=== PATIENT | female | born 1960 | race Caucasian/White ===

== ENCOUNTER 2016-12-28 16:52 | Observation (INO) ==
[2016-12-28] MEDS ORDERED: Aspirin 81 MG TAB.CHEW PO ONE (17:05)
[2016-12-28 17:19] LABS: Basophils # 0.1 K/mcL (0.0-0.2); Basophils % 0.5 %; Eosinophils # 0.1 K/mcL (0.0-0.6); Eosinophils % 0.7 %; Hemoglobin 13.6 g/dL (11.5-15.4); Immature Granulocytes % 0.2 % (0-4); Immature Platelets 3.1 % (1.1-6.1); Lymphocytes # 2.6 K/mcL (0.6-4.6); Lymphocytes % 28.7 %; Mean Corpuscular HGB Conc 33.2 g/dL (31.6-35.5); Mean Corpuscular Hemoglobin 27.8 pg (28.0-33.3); Mean Corpuscular Volume 83.8 fL (83.0-100.0); Mean Platelet Volume 10.1 fL (9.4-12.4); Monocytes # 0.7 K/mcL (0.0-1.3); Monocytes % 7.2 %; Neutrophils # 5.7 K/mcL (1.6-8.9); Platelet Count 267 K/mcL (140-400); Red Blood Count 4.89 M/mcL (3.82-4.97); Red Cell Distribution Width 13.2 % (11.5-14.5); Segmented Neutrophils % 62.7 %
[2016-12-28 17:24] LABS: INR 1.1; Prothrombin Time 12.2 Seconds (9.4-12.1)
[2016-12-28 17:27] LABS: Activated Partial Thrombo Time 35.2 Seconds (26.0-36.0)
[2016-12-28 17:32] LABS: BUN/Creatinine Ratio 23 (6-26); Blood Urea Nitrogen 18 mg/dL (7-20); Calcium 9.9 mg/dL (8.6-10.8); Carbon Dioxide 30 mEq/L (19-29); Chloride 102 mEq/L (98-109); Glucose 108 mg/dL (70-99); Osmolality,Calculated 290 (280-300); Potassium 3.8 mEq/L (3.5-4.5); Sodium 139 mEq/L (136-145); eGFR For African Americans > 60 (> 60); eGFR For Non-African Americans > 60 (> 60)
--- NOTE | 2016-12-28 18:07 | Emergency Department Note ---
START Narrative - START START: I examined this patient and my medical decision-making was reviewed with the POLE TESTER/PA/Advanced Practice Nurse/Resident Physician. I agree with the documented findings, disposition and treatment plan as described except to the extent set forth below. ED attending note: Patient seen with emergency medicine resident Dr RAZA. We independently evaluated the patient. We independently had [id number] contact with the patient. Please see a copy of his note for details of the history and physical, evaluation, management and disposition of this emergency Department patient. Briefly 56-year-old female presents ambulatory with family members for chest pain. Her HEART score, is between 4 and 5. EKG shows no acute ischemic changes troponin negative patient is pain-free. Patient will be admitted for chest pain consider acute coronary syndrome. Provided 30 minutes of critical care services for this patient. Aspirin was unable to be given because the patient states she has a "gastric sleeve" and her surgeon said that she cannot of aspirin. Patient to be admitted in stable condition
--- NOTE | 2016-12-28 18:09 | Emergency Department Note ---
Disposition Clinical Impression: Chest pain Qualifiers: Chest pain type: unspecified Qualified Code(s): R07.9 - Chest pain, unspecified Disposition: Admitted As Inpatient Condition: Fair Referrals: Jaime Gipson DO [Primary Care Provider] - Forms: ED Satisfaction Letter Time of Disposition: 18:42 Chest Pain HPI - General Chief Complaint: ED Chest Pain Stated Complaint: C/P Time Seen by Provider: 12/28/16 17:06 Source: patient Limitations: no limitations Vital Signs Reviewed: Yes Nursing Notes Reviewed: Yes - History of Present Illness HPI Narrative: 56-year-old female with history of hypertension hyperlipidemia and diabetes, also status post gastric bypass a few years ago, and previous PR 5 years ago. Presents with chest pain substernal at rest. It is making her diaphoretic was 8 out of 10 aching and felt like pressure that radiated into her neck made her diaphoretic and nauseated. Patient arrives, she is unable to take aspirin secondary to intolerance. Patient reports that she still is 6 out of 10 pain. Patient denies fever chills or recent infection, denies diarrhea constipation or abdominal pain. Pt complaint: chest pain Onset (ago): hour(s) Duration: intermittent Pain Location: substernal Severity: moderate Severity scale (1-10): 6 Quality: aching Pain Radiation: neck Improves with: nothing Worsens with: exertion Associated symptoms: Reports: nausea, diaphoresis Treatments prior to arrival chest pain: none - Related Data Allergies Allergy/AdvReac Type Severity Reaction Status Date / Time No Known Allergies Allergy Verified 12/28/16 17:29 All systems ED: reviewed and negative except as stated. Review of Systems: As Per HPI Constitutional: Denies: fever, chills, weakness ENT ED: Denies: ear pain, throat pain Cardiovascular: Reports: as per HPI, chest pain, dyspnea on exertion. Denies: palpitations, edema Respiratory: Denies: cough, dyspnea Gastrointestinal: Reports: as per HPI, nausea. Denies: abdominal pain Genitourinary: Denies: urgency, dysuria Musculoskeletal: Denies: back pain, neck pain Integumentary: Denies: rash Neurological: Denies: headache Chest Pain PMH - Past Medical History Medical history: Reports: diabetes, hypertension, myocardial infarction Psychiatric history: Reports: no psych history - Social History Smoking Status: Never smoker Alcohol use: Reports: none Drug use: Reports: none Physical Exam Constitutional: appears moderately uncomfortable. Older than stated age, hypertension Eyes: PERRLA, sclera anicteric ENT & Mouth: NCAT, normal external ears bilaterally, MMM Neck: normal inspection, neck is supple Resp: CTA bilaterally, no resp distress CV: RRR, no m/g/r GI: midline surgical incision normal inspection, soft, no guarding or rigidity Back: normal inspection, no tenderness to palpation Neuro: A&O3, CNII-XII grossly intact, COY MSK: no gross deformities, normal ROM UE and LE Skin: on limited exam, skin intact with no rashes or lesions - General Limitations: no limitations General appearance: alert, in no apparent distress Course Course Narrative: 56-year-old female with a heart score of 5, Chest pain workup give nitroglycerin patient says she is intolerant to aspirin so this time we will defer this admission. - Reevaluation(s) Reevaluation #1: Patient with nonelevated troponin, EKG with no ischemic changes, chest pain improved after nitroglycerin admitted to medicine service in stable condition. Laury THORNE accepts. Vital Signs Temperature 98.2 F 12/28/16 16:59 Pulse Rate 72 12/28/16 16:59 Respiratory Rate 17 12/28/16 16:59 Blood Pressure 167/109 12/28/16 16:59 O2 Sat by Pulse Oximetry 98 12/28/16 16:59 Temperature 98.2 F 12/28/16 16:59 Pulse Rate 77 12/28/16 17:44 Respiratory Rate 18 12/28/16 17:44 Blood Pressure 146/70 12/28/16 17:44 O2 Sat by Pulse Oximetry 96 12/28/16 17:44 Oxygen Delivery Oxygen Delivery Room Air Chest Pain - Differential Diagnosis Likely: stable angina, unstable angina pectoris, atypical chest pain - Medical Records Medical records reviewed: Yes I reviewed the patient's medical records. - Lab Data Lab results reviewed: Yes I reviewed the patient's lab results. Result diagrams: 12/28/16 17:12 12/28/16 17:12 Lab Results 12/28/16 12/28/16 12/28/16 Range/Units 17:12 17:12 17:12 WBC 9.2 (4.3-11.1) K/mcL RBC 4.89 (3.82-4.97) M/mcL Hgb 13.6 (11.5-15.4) g/dL Hct 41.0 (35.3-44.9) % MCV 83.8 (83.0-100.0) fL MCH 27.8 L (28.0-33.3) pg MCHC 33.2 (31.6-35.5) g/dL RDW 13.2 (11.5-14.5) % Plt Count 267 (140-400) K/mcL MPV 10.1 (9.4-12.4) fL Immature Gran % 0.2 (0-4) % Seg Neutrophils % 62.7 % Lymphocytes % 28.7 % Monocytes % 7.2 % Eosinophils % 0.7 % Basophils % 0.5 % Neutrophils # 5.7 (1.6-8.9) K/mcL Lymphocytes # 2.6 (0.6-4.6) K/mcL Monocytes # 0.7 (0.0-1.3) K/mcL Eosinophils # 0.1 (0.0-0.6) K/mcL Basophils # 0.1 (0.0-0.2) K/mcL Immature Plt Fraction 3.1 (1.1-6.1) % PT 12.2 H (9.4-12.1) Seconds INR 1.1 APTT 35.2 (26.0-36.0) Seconds Sodium 139 (136-145) mEq/L Potassium 3.8 (3.5-4.5) mEq/L Chloride 102 (98-109) mEq/L Carbon Dioxide 30 H (19-29) mEq/L BUN 18 (7-20) mg/dL Creatinine 0.79 (0.57-1.11) mg/dL Est GFR ( Amer) > 60 (> 60) Est GFR (Non-Af Amer) > 60 (> 60) BUN/Creatinine Ratio 23 (6-26) Glucose 108 H (70-99) mg/dL Calculated Osmolality 290 (280-300) Calcium 9.9 (8.6-10.8) mg/dL Troponin I (0-0.03) ng/mL 12/28/16 Range/Units 17:12 WBC (4.3-11.1) K/mcL RBC (3.82-4.97) M/mcL Hgb (11.5-15.4) g/dL Hct (35.3-44.9) % MCV (83.0-100.0) fL MCH (28.0-33.3) pg MCHC (31.6-35.5) g/dL RDW (11.5-14.5) % Plt Count (140-400) K/mcL MPV (9.4-12.4) fL Immature Gran % (0-4) % Seg Neutrophils % % Lymphocytes % % Monocytes % % Eosinophils % % Basophils % % Neutrophils # (1.6-8.9) K/mcL Lymphocytes # (0.6-4.6) K/mcL Monocytes # (0.0-1.3) K/mcL Eosinophils # (0.0-0.6) K/mcL Basophils # (0.0-0.2) K/mcL Immature Plt Fraction (1.1-6.1) % PT (9.4-12.1) Seconds INR APTT (26.0-36.0) Seconds Sodium (136-145) mEq/L Potassium (3.5-4.5) mEq/L Chloride (98-109) mEq/L Carbon Dioxide (19-29) mEq/L BUN (7-20) mg/dL Creatinine (0.57-1.11) mg/dL Est GFR ( Amer) (> 60) Est GFR (Non-Af Amer) (> 60) BUN/Creatinine Ratio (6-26) Glucose (70-99) mg/dL Calculated Osmolality (280-300) Calcium (8.6-10.8) mg/dL Troponin I 0.00 (0-0.03) ng/mL - Radiology Data Radiology results reviewed: Yes I reviewed the patient's radiology results. Lab Results 12/28/16 12/28/16 12/28/16 Range/Units 17:12 17:12 17:12 WBC 9.2 (4.3-11.1) K/mcL RBC 4.89 (3.82-4.97) M/mcL Hgb 13.6 (11.5-15.4) g/dL Hct 41.0 (35.3-44.9) % MCV 83.8 (83.0-100.0) fL MCH 27.8 L (28.0-33.3) pg MCHC 33.2 (31.6-35.5) g/dL RDW 13.2 (11.5-14.5) % Plt Count 267 (140-400) K/mcL MPV 10.1 (9.4-12.4) fL Immature Gran % 0.2 (0-4) % Seg Neutrophils % 62.7 % Lymphocytes % 28.7 % Monocytes % 7.2 % Eosinophils % 0.7 % Basophils % 0.5 % Neutrophils # 5.7 (1.6-8.9) K/mcL Lymphocytes # 2.6 (0.6-4.6) K/mcL Monocytes # 0.7 (0.0-1.3) K/mcL Eosinophils # 0.1 (0.0-0.6) K/mcL Basophils # 0.1 (0.0-0.2) K/mcL Immature Plt Fraction 3.1 (1.1-6.1) % PT 12.2 H (9.4-12.1) Seconds INR 1.1 APTT 35.2 (26.0-36.0) Seconds Sodium 139 (136-145) mEq/L Potassium 3.8 (3.5-4.5) mEq/L Chloride 102 (98-109) mEq/L Carbon Dioxide 30 H (19-29) mEq/L BUN 18 (7-20) mg/dL Creatinine 0.79 (0.57-1.11) mg/dL Est GFR ( Amer) > 60 (> 60) Est GFR (Non-Af Amer) > 60 (> 60) BUN/Creatinine Ratio 23 (6-26) Glucose 108 H (70-99) mg/dL Calculated Osmolality 290 (280-300) Calcium 9.9 (8.6-10.8) mg/dL Troponin I (0-0.03) ng/mL 12/28/16 Range/Units 17:12 WBC (4.3-11.1) K/mcL RBC (3.82-4.97) M/mcL Hgb (11.5-15.4) g/dL Hct (35.3-44.9) % MCV (83.0-100.0) fL MCH (28.0-33.3) pg MCHC (31.6-35.5) g/dL RDW (11.5-14.5) % Plt Count (140-400) K/mcL MPV (9.4-12.4) fL Immature Gran % (0-4) % Seg Neutrophils % % Lymphocytes % % Monocytes % % Eosinophils % % Basophils % % Neutrophils # (1.6-8.9) K/mcL Lymphocytes # (0.6-4.6) K/mcL Monocytes # (0.0-1.3) K/mcL Eosinophils # (0.0-0.6) K/mcL Basophils # (0.0-0.2) K/mcL Immature Plt Fraction (1.1-6.1) % PT (9.4-12.1) Seconds INR APTT (26.0-36.0) Seconds Sodium (136-145) mEq/L Potassium (3.5-4.5) mEq/L Chloride (98-109) mEq/L Carbon Dioxide (19-29) mEq/L BUN (7-20) mg/dL Creatinine (0.57-1.11) mg/dL Est GFR ( Amer) (> 60) Est GFR (Non-Af Amer) (> 60) BUN/Creatinine Ratio (6-26) Glucose (70-99) mg/dL Calculated Osmolality (280-300) Calcium (8.6-10.8) mg/dL Troponin I 0.00 (0-0.03) ng/mL Chest X-Ray 12/28/16 17:05 IMPRESSION: No acute process. D/ / Marissa Draper MD / Marissa Draper MD Interpreting Provider: Marissa Draper MD - EKG Data EKG attestation: Yes I reviewed and interpreted this EKG. EKG shows normal: sinus rhythm Rate: normal Rhythm: NSR (Ventricular rate 73 WI 144 QRS [address] segment elevations or depressions) ST segment depression in: v3 T wave inversions noted in: II, III Interpretation: nonspecific ST-T wave changes - Core Measures AMI Core Measures Followed: No Measure Exclusions: contraindicated (Patient intolerance secondary to GI surgery.) Heart Score - Score History: Moderately Suspicious EKG: Non Specific repolarisation Disturbance Age: 45-65 Risk Factors: Equal/Greater than 3 risk factor or history of atherosclerotic disease Troponin: Less than normal limit HEART Score Total: 5
[2016-12-28] MEDS ORDERED: Nitroglycerin 0.4 MG TAB.SUBL SL ONE (18:31)
[2016-12-28] MEDS ORDERED: Ondansetron 4 MG/2 ML VIAL IVP PRN (19:55)
[2016-12-28] MEDS ORDERED: *HR* Morphine 2 MG/ML SYRINGE IVP PRN (19:55)
[2016-12-28] MEDS ORDERED: Acetaminophen 325 MG TABLET PO PRN (19:55)
[2016-12-28] MEDS ORDERED: Naloxone 0.4 MG/ML INJ IVP PRN (19:55)
[2016-12-28] MEDS ORDERED: Nitroglycerin 0.4 MG TAB.SUBL SL PRN (20:00)
--- NOTE | 2016-12-28 20:10 | Internal Med History&Physical ---
Date of Encounter: 12/28/16 Time of Encounter: 20:15 Assessment and Plan (1) Chest pain Current visit: Yes Status: Acute Atypical chest pain - rule out ACS Continue Aspirin and Statin EKG - normal sinus rhythm with no acute ST-T changes Chest x-ray - no acute process Troponin - normal, cycle troponins BN peptide - 20 Echocardiogram and stress test pending Cardiac telemetry, labs in a.m. Qualifiers: Chest pain type: unspecified Qualified Code(s): R07.9 - Chest pain, unspecified (2) Type 2 diabetes mellitus Current visit: Yes Status: Chronic Diabetes mellitus type 2, [id number], normoglycemia - not on any home meds since gastric bypass surgery Objective glucose checks Qualifiers: Diabetes mellitus complication status: without complication Diabetes mellitus fci insulin use: without fci use Qualified Code(s): E11.9 - Type 2 diabetes mellitus without complications (3) Essential hypertension Current visit: Yes Status: Chronic Essential hypertension, controlled, monitor, continue home meds (4) S/P gastric bypass Current visit: Yes Status: Chronic Status post recent gastric bypass surgery and hiatal hernia repair (5) DVT prophylaxis Current visit: Yes Status: Acute Continue heparin subcutaneous Internal Medicine - H&P: HPI Chief complaint: Chest pain Admitted From: Emergency Dept Plans for Post Hospital Care: Home History of present illness: Ms. Lynch is a 56 year old female past medical history of diabetes, hypertension and status post recent gastric bypass surgery. She presents to ED with complaints of chest pain. On examination patient is awake and alert. Not in any distress. Able to provide all history. Daughter is at bedside. Patient states she developed abdominal pain and chest pain this afternoon. She mentions she ate a turkey sandwich for lunch and thinks she may have eaten the sandwich too quickly quickly and then suddenly developed the left-sided chest pain. Pain was almost constant and rates it 8 out of 10. Describes it as a chest pressure, radiating to left shoulder and left side of neck. She also had mild associated shortness of breath which is now resolved. She also complained of mild epigastric pain which is resolved. Denies palpitations or headache or dizziness. Denies abdominal pain or diarrhea or fever. Patient had a gastric bypass surgery done in September 2016. She has lost about 70 pounds since then. She no longer takes any medication for diabetes. She also had a hernia repair at the same time. Patient has no other associated symptoms at present. Initial evaluation in the ED is negative. EKG shows normal sinus rhythm and chest x-ray does not show any acute process. Troponin is normal. Patient is being admitted for chest pain, rule out ACS. Aspirin and statin will be continued. Echocardiogram and stress test are pending. Patient has been explained about her condition and plan of care. She understood and agreed. No unanswered questions. CODE STATUS full code. Past Med Surg Social Fam HX - Past Medical History Medical history: diabetes, hypertension, myocardial infarction Psychiatric history: no psych history - Past Surgical History Surgical History: cholecystectomy, other (Recent gastric bypass surgery and hiatal hernia repair) - Social History Smoking Status: Never smoker Smokeless Tobacco Status: No Alcohol use: none Drug use: none - Family History Mother Hx Family Cardiac Disorders: Yes (quad bypass, htn) Hx Family Neuromuscular Disorders: Yes (cva) Father Hx Family Cardiac Disorders: Yes Internal Medicine - H&P: Meds Calcium Carbonate [Calcium] 500 mg PO BID 12/28/16 [History] Cyanocobalamin (Vitamin B-12) [Vitamin B12] 1,000 mcg PO DAILY 12/28/16 [History ] Cyclobenzaprine [Flexeril] 10 mg PO HS PRN 12/28/16 [History] Lisinopril-HCTZ 10-12.5 [Prinzide 10-12.5] 0.5 each PO DAILY 12/28/16 [History] Magnesium Gluconate 500 gm MC HS 12/28/16 [History] Multivitamin [Flintstones] 2 each PO DAILY 12/28/16 [History] Ondansetron ODT [Zofran ODT] 4 mg SL Q4HR PRN 12/28/16 [History] Pantoprazole Sodium [Protonix] 40 mg PO DAILY 12/28/16 [History] Allergies NSAIDS (Non-Steroidal Anti-Inflamma Allergy (Verified 12/28/16 19:54) Abdominal Pain pt cannot take due to gastric sleeve promethazine [From Phenergan] Adverse Reaction (Intermediate, Verified 12/28/16 19:54) Confusion All Systems PM: A 10-system review of systems was performed and is negative for pertinent findings except as documented above in the HPI. - Constitutional Constitutional: no fatigue, no fever(s), no weakness - EENT Eyes: no blurry vision - Cardiovascular Cardiovascular ROS IM: chest pain, no dyspnea, no dyspnea on exertion, no edema , no lightheadedness, no orthopnea, no palpitations, no syncope - Respiratory Respiratory: no cough, no dyspnea, no hemoptysis, no dyspnea on exertion, no wheezing, no chest congestion - Gastrointestinal Gastrointestinal: abdominal pain, no belching, no bloating, no cramping, no diarrhea, no loose stools, no melena, no nausea, no vomiting - Genitourinary Genitourinary: no dysuria - Musculoskeletal Musculoskeletal ROS IM: no arthralgias - Neurological Neurological ROS: no abnormal gait, no abnormal speech, no dizziness, no focal weakness, no loss of vision, no numbness, no tingling - Constitutional Vitals: Temp Pulse Resp BP Pulse Ox 98.2 F 77 18 135/70 96 12/28/16 16:59 12/28/16 17:44 12/28/16 19:13 12/28/16 19:13 12/28/16 17:44 General appearance: Present: A&O X 3, pleasant, no acute distress, answers questions appropriately - Head Head exam: Present: atraumatic - Eye Eye exam: Present: EOMI - ENT ENT exam: Present: mucous membranes moist - Neck Neck exam general surgery: Present: supple - Respiratory Respiratory exam: Present: CTAB. Absent: chest wall tenderness, rales, rhonchi , wheezes, tachypnea - Cardiovascular Cardiovascular exam: Present: RRR, +S1, +S2 - GI/Abdominal GI/Abdominal exam: Present: soft, no peritoneal signs. Absent: distended, firm , guarding, rigid, tenderness - Extremities Exam Extremities exam: Present: radial pulses palpable and symetrical. Absent: cyanotic, pedal edema, tenderness - Neurological Exam Neurological exam: Present: alert, oriented X3, no focal deficits. Absent: facial droop, speech deficit Internal Med - H&P Results - Labs CBC & Chem 7: 12/28/16 17:12 12/28/16 17:12
[2016-12-28 20:26] LABS: Magnesium 2.2 mg/dL (1.6-2.6)
[2016-12-28] MEDS ORDERED: MAGNESIUM GLUCONATE MC SCH (21:00)
[2016-12-28] MEDS: Pantoprazole 40 MG VIAL IVP SCH (21:57)
[2016-12-29 05:58] LABS: Hematocrit 37.8 % (35.3-44.9); Hemoglobin 12.4 g/dL (11.5-15.4); Immature Granulocytes % 0.4 % (0-4); Lymphocytes % 25.2 %; Mean Corpuscular HGB Conc 32.8 g/dL (31.6-35.5); Mean Corpuscular Hemoglobin 27.6 pg (28.0-33.3); Mean Corpuscular Volume 84.2 fL (83.0-100.0); Mean Platelet Volume 10.4 fL (9.4-12.4); Monocytes % 8.2 %; Platelet Count 226 K/mcL (140-400); Red Blood Count 4.49 M/mcL (3.82-4.97); Red Cell Distribution Width 13.3 % (11.5-14.5); Segmented Neutrophils % 64.4 %
[2016-12-29 05:59] LABS: Basophils # 0.1 K/mcL (0.0-0.2); Basophils % 0.7 %; Eosinophils # 0.1 K/mcL (0.0-0.6); Eosinophils % 1.1 %; Lymphocytes # 1.9 K/mcL (0.6-4.6); Monocytes # 0.6 K/mcL (0.0-1.3); Neutrophils # 4.9 K/mcL (1.6-8.9)
[2016-12-29] MEDS ORDERED: Regadenoson 0.4 MG/5 ML SYRINGE IVP ONE (05:59)
[2016-12-29] MEDS ORDERED: *HR* Heparin 5,000 UNIT/ML VIAL SQ SCH (06:00)
[2016-12-29 06:10] LABS: Hemoglobin A1C 5.4 %
[2016-12-29 06:19] LABS: BUN/Creatinine Ratio 20 (6-26); Blood Urea Nitrogen 14 mg/dL (7-20); Calcium 9.2 mg/dL (8.6-10.8); Carbon Dioxide 31 mEq/L (19-29); Chloride 104 mEq/L (98-109); Chol/HDL Ratio 5.4 (0-4.9); Cholesterol 196 mg/dL (< 200); Glucose 91 mg/dL (70-99); HDL Cholesterol 36 mg/dL (40-59); LDL Cholesterol,Calculated 138 mg/dL (0-99); Osmolality,Calculated 290 (280-300); Potassium 3.9 mEq/L (3.5-4.5); Sodium 140 mEq/L (136-145); Triglycerides 109 mg/dL (< 150); eGFR For African Americans > 60 (> 60); eGFR For Non-African Americans > 60 (> 60)
[2016-12-29 06:32] LABS: Thyroid Stimulating Hormone 1.253 mcIU/mL (0.350-4.840)
[2016-12-29] MEDS ORDERED: Aspirin 81 MG TAB.CHEW PO SCH (09:00)
[2016-12-29] MEDS ORDERED: Cyanocobalamin (B-12) 1,000 MCG TABLET PO SCH (09:00)
[2016-12-29] MEDS ORDERED: Multivit/Ca/Min/Fe/FA 1 TAB TABLET PO SCH (09:00)
--- NOTE | 2016-12-29 09:43 | Nuclear Medicine Stress Report ---
Regadenoson Nuclear Stress Name: Xenia Lynch Date of Study: 12/29/2016 Date: 1960 Ht: 68.0 in Medical Record#: [id number] Age: 56 Wt: 212.0 lb Gender: Female Order #: [id number] Location: [facility] Room: [facility] Supervising Provider: Omer Bundy CNP Reading Physician: Ameya Keller DO, FIDELINA, CURTIS DRIVER Ordering Physician: Laura Alejandro CNP Primary Care Physician: None Stress Technologist: Renetta Christiansen, FLANGE MACHINE OPERATOR, CPFT Data Entry Manager: Stephany Lobo Indications: Chest Pain Impression: Pharmacologic stress ECG is non-diagnostic for ischemia due to baseline ST and T changes. Gated EF = 69%. Small sized, mild intensity, fixed apical anterior/septal and basal inferolateral defects. Wall motion appears normal. These findings are suggestive of artifact. Perfusion imaging was negative for ischemia or infarct. History: Hypertension Stress Test Summary: Stress Test Type: Pharmacologic Regadenoson 0.4mg/5ml given IV Baseline Information: Initial Heart Rate: 70 Blood Pressure: 124/78 Stress Information: Test Terminated Due to (primary): As per protocol Maximum Blood Pressure: 124/78 Maximum Heart Rate: 96 Percent Maximum Heart Rate Achieved: 58 Double Product: [id number] METS Reached: 1 Nuclear Summary: SPECT myocardial perfusion imaging using Tc99m Sestamibi given intravenously was performed at rest and following cardiac stress testing. The resting images were obtained following initial dose of 11.3 mCi. Following stress an additional dose of 32.8 mCi was given at peak exercise or 30 seconds post regadenoson infusion. Medication Given: Time Medication Dose Units Route Findings: Stress Note * Resting ECG demonstrated normal sinus rhythm with nonspecific ST-T changes. * No baseline arrhythmias were noted. * Pharmacologic stress ECG is non-diagnostic for ischemia due to baseline ST and T changes. * No arrhythmias were noted during stress. * Patient had no chest pain during stress. Hemodynamic responses * Normal hemodynamic responses to pharmacologic stress. Study Quality * Study quality is average. Gated EF % * Gated EF = 69%. Left Ventricle * The left ventricle is not dilated. LVEDV = 101 mL. * Normal wall motion. Apical Perfusion Rest * The apical septal/anterior segments show a mild reduction in perfusion. Apical Perfusion Stress * The apical septal/anterior segments show a mild reduction in perfusion. Inferior Perfusion Rest * The basal inferolateral segment shows a mild reduction in perfusion. Inferior Perfusion Stress * The basal inferolateral segment shows a mild reduction in perfusion. TID * No evidence of transient ischemic dilatation. TID ratio = 0.88. Lung Uptake * There is no evidence of increase lung uptake. Updated by Ameya Keller DO, FIDELINA, VILLA, CURTIS on 12/29/2016 9:35:03 AM electronically signed on 12/29/2016 9:36:32 AM with status of Final
[2016-12-29] MEDS: Pantoprazole 40 MG VIAL IVP SCH (09:51)
[2016-12-29 10:54] VITALS: BP 140/86
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
--- NOTE | 2016-12-29 15:57 | Electrocardiograph Report ---
[address] [place], [place] [address] Test Date: 2016-12-28 Pat Name: Xenia Lynch Department: 103 Room: 3B36 Gender: F Small Stock Facer: : 1960 Requested By: Timo Patterson Order Number: [id number] Reading MD: Roberto Gatica MD Measurements Intervals [place] Rate: 73 P: 39 FL: 144 QRS: 21 QRSD: 102 T: 42 QT: 391 QTc: 417 Interpretive Statements SINUS RHYTHM LATERAL ISCHEMIA Electronically Signed On 12-29-2016 15:55:31 EDT by Roberto Gatica MD
== END 2016-12-29 12:55 | disposition home or self-care (01) ==
LOC: 3BNU 16:52 → EMEROO 16:52 → 3BNU 19:31
PROVIDERS: ADMIT Family Medicine; ATTEND Registered Nurse

== ENCOUNTER 2017-10-25 10:16 | Observation (INO) ==
[2017-10-25] MEDS ORDERED: 0.9 % Sodium Chloride 1,000 ML IVC ONE (10:51)
[2017-10-25] MEDS ORDERED: Metoclopramide 10 MG/2 ML VIAL IVP ONE (10:51)
[2017-10-25] MEDS ORDERED: Isovue-370 500 ML INFUS..BTL IV ONE (10:52)
--- NOTE | 2017-10-25 10:54 | Emergency Department Note ---
Disposition Clinical Impression: S/P gastric bypass Headache Qualifiers: Headache type: unspecified Headache chronicity pattern: unspecified pattern Intractability: not intractable Qualified Code(s): R51 - Headache Chest pain Qualifiers: Chest pain type: unspecified Qualified Code(s): R07.9 - Chest pain, unspecified Disposition: Admitted As Inpatient Condition: Good Time of Disposition: 13:54 Headache HPI - General Chief Complaint: ED Headache Stated Complaint: Headache, nausea Time Seen by Provider: 10/25/17 10:25 Source: patient Mode of arrival: ambulatory Limitations: no limitations Nursing Notes Reviewed: Yes Vital Signs Reviewed: Yes - History of Present Illness HPI Narrative: Patient presents to the ED the chief complaint of headache and chest pain. Patient reports that about 2 days ago she developed a headache that is occipital and left-sided. States that she normally does not have headaches and that this is unusual for her. She does report that she has a history of migraines but those were all right-sided, and are completely different than this headache and she has not had one of those in years. She states that she is also been nauseated and having some left-sided chest pain that is nonpleuritic, nonradiating. Nothing seems to make it better or worse. Nothing seems to make her headache better or worse. She states she is concerned because she has a extensive family history of multiple aneurysms in the brain and carotid issues. States that she has no history of coronary artery disease and did have a workup last year that was unremarkable. She denies any vomiting but states she has been nauseated since yesterday. No changes in vision or eye pain. No abdominal pain, diarrhea. No rash. She is also complaining of bilateral shoulder pain with left greater than right, which did improve after family member gave her a massage. She does state that she had reconstructive surgery on her lower back with rods and pins after a fall many years ago. Pain Scale: 10 - Related Data Home Medications Medication Instructions Recorded Confirmed Calcium Carbonate [Calcium] 500 mg PO BID 12/28/16 10/25/17 Cyanocobalamin (Vitamin B-12) 1,000 mcg PO DAILY 12/28/16 10/25/17 [Vitamin B12] Cyclobenzaprine [Flexeril] 10 mg PO HS PRN 12/28/16 10/25/17 Multivitamin [Flintstones] 2 each PO DAILY 12/28/16 10/25/17 Ondansetron ODT [Zofran ODT] 4 mg SL Q4HR PRN 12/28/16 10/25/17 Cholecalciferol (D-3) [Vitamin D] 2,500 unit PO DAILY 12/29/16 10/25/17 Tramadol HCl [Ultram] 50 mg PO QID PRN 10/25/17 10/25/17 Allergies Allergy/AdvReac Type Severity Reaction Status Date / Time Corticosteroids Allergy SWELLING Verified 10/25/17 14:16 (Glucocorticoids) promethazine [From Phenergan] AdvReac Intermediate Confusion Verified 10/25/17 10:21 aspirin AdvReac PATIENT Verified 10/25/17 14:16 HAD WEIGHT LOSS SURGERY,CONTRAINDICATED NSAIDS (Non-Steroidal AdvReac Abdominal Verified 10/25/17 10:21 Anti-Inflamma Pain Review of Systems: As reviewed in the HPI. All other systems reviewed are negative or normal. Headache PMH - Past Medical History Medical history: Reports: diabetes, hypertension, myocardial infarction Female Surgical History: Reports: cholecystectomy, other (Recent gastric bypass surgery and hiatal hernia repair) Psychiatric history: Reports: no psych history - Social History Smoking Status: Never smoker Alcohol use: Reports: none Drug use: Reports: none Physical Exam CONSTITUTIONAL: [Appears to feel unwell but no acute distress] SKIN: [Warm, dry, and intact without rash] EYES: [extraocular movements are grossly intact, clear conjunctiva, left-sided photophobia] HENT: [Normocephalic, atraumatic, moist mucus membranes] NECK: [no obvious swelling, normal range of motion, no meningismus] PULMONARY: [normal chest rise and fall, no respiratory distress or stridor CARDIOVASCULAR: [regular rate, distal extremities are warm and well perfused] GASTROINSTESTINAL: [nondistended, non-tender] GENITOURINARY: [deferred] NEUROLOGIC: [normal speech, moves all extremities, cranial nerves II through XII are intact, finger to nose is normal, rapid alternating movements of the upper extremity is normal, but is slower on the left compared to the right, normal strength and sensation throughout] MUSCULOSKELETAL: [no gross deformities, atraumatic] PSYCHIATRIC: [normal mood and affect] - General Limitations: no limitations General appearance: alert, in no apparent distress Course Course Narrative: Patient presenting with headache and chest pain. Has a family history of aneurysms which is certainly concerning. Neurological exam is relatively normal , but her cerebellar function on her left is a little bit slowed compared to the right. We did a CTA of her head, neck, chest x-ray and cardiac workup. Patient will likely need to be admitted - Reevaluation(s) Reevaluation #1: Patient's CTA is back and is unremarkable. We will admit her for further cardiac rule out and neurology evaluation. Vital Signs Temperature 97.5 F L 10/25/17 10:21 Pulse Rate 56 10/25/17 10:21 Respiratory Rate 20 10/25/17 10:21 Blood Pressure 204/109 10/25/17 10:21 O2 Sat by Pulse Oximetry 99 10/25/17 10:21 Temperature 97.5 F L 10/25/17 10:41 Pulse Rate 56 10/25/17 10:41 Respiratory Rate 20 10/25/17 10:41 Blood Pressure 204/109 10/25/17 10:41 O2 Sat by Pulse Oximetry 99 10/25/17 10:41 Oxygen Delivery Oxygen Delivery Room Air Headache - Medical Records Medical records reviewed: Yes I reviewed the patient's medical records. - Lab Data Lab results reviewed: Yes I reviewed the patient's lab results. Result diagrams: 10/25/17 11:19 10/25/17 11:19 Lab Results 10/25/17 10/25/17 10/25/17 Range/Units 11:19 11:19 11:19 WBC 10.7 (4.3-11.1) K/mcL RBC 4.90 (3.82-4.97) M/mcL Hgb 14.1 (11.5-15.4) g/dL Hct 40.8 (35.3-44.9) % MCV 83.3 (83.0-100.0) fL MCH 28.8 (28.0-33.3) pg MCHC 34.6 (31.6-35.5) g/dL RDW 12.9 (11.5-14.5) % Plt Count 231 (140-400) K/mcL MPV 9.7 (9.4-12.4) fL Immature Gran % 0.4 (0-4) % Seg Neutrophils % 79.8 % Lymphocytes % 13.2 % Monocytes % 5.6 % Eosinophils % 0.5 % Basophils % 0.5 % Neutrophils # 8.6 (1.6-8.9) K/mcL Lymphocytes # 1.4 (0.6-4.6) K/mcL Monocytes # 0.6 (0.0-1.3) K/mcL Eosinophils # 0.1 (0.0-0.6) K/mcL Basophils # 0.1 (0.0-0.2) K/mcL Sodium 141 (136-145) mEq/L Potassium 3.8 (3.5-5.1) mEq/L Chloride 104 (98-107) mEq/L Carbon Dioxide 32 H (23-29) mEq/L BUN 12 (6-20) mg/dL Creatinine 0.59 L (0.60-1.20) mg/dL Est GFR ( Amer) > 60 (> 60) Est GFR (Non-Af Amer) > 60 (> 60) BUN/Creatinine Ratio 20 (6-26) Glucose 105 (70-105) mg/dL Calculated Osmolality 292 (280-300) Calcium 9.6 (8.6-10.3) mg/dL Total Bilirubin 1.2 H (0.3-1.0) mg/dL Direct Bilirubin 0.2 (0.0-0.2) mg/dL Indirect Bilirubin 1.0 (0.0-1.2) mg/dL AST 19 (13-39) Units/L ALT 18 (7-52) Units/L Alkaline Phosphatase 55 (34-104) Units/L Troponin I < 0.03 (< 0.04) ng/mL Serum Total Protein 6.9 (6.4-8.9) g/dL Albumin 4.1 (3.5-5.7) g/dL Globulin 2.8 (2.4-3.5) g/dL Albumin/Globulin Ratio 1.5 (1.1-2.2) Lipase 19 (11-82) Units/L - Radiology Data Radiology results reviewed: Yes I reviewed the patient's radiology results. - EKG Data EKG attestation: Yes I reviewed and interpreted this EKG. EKG results narrative: Sinus bradycardia, rate 49, NV interval 164, QRS 100, QTC 4:15, normal axis, no acute ischemic changes
--- NOTE | 2017-10-25 11:26 | Emergency Department Note ---
Disposition Clinical Impression: S/P gastric bypass Headache Qualifiers: Headache type: unspecified Headache chronicity pattern: unspecified pattern Intractability: not intractable Qualified Code(s): R51 - Headache Chest pain Qualifiers: Chest pain type: unspecified Qualified Code(s): R07.9 - Chest pain, unspecified Disposition: Admitted As Inpatient Condition: Good General Adult HPI - General Chief complaint: ED Headache Stated complaint: Headache, nausea Time Seen by Provider: 10/25/17 10:25 Source: patient Limitations: no limitations - History of Present Illness Pain Scale: 10 - Related Data Home Medications Medication Instructions Recorded Confirmed Calcium Carbonate [Calcium] 500 mg PO BID 12/28/16 10/25/17 Cyanocobalamin (Vitamin B-12) 1,000 mcg PO DAILY 12/28/16 10/25/17 [Vitamin B12] Cyclobenzaprine [Flexeril] 10 mg PO HS PRN 12/28/16 10/25/17 Multivitamin [Flintstones] 2 each PO DAILY 12/28/16 10/25/17 Ondansetron ODT [Zofran ODT] 4 mg SL Q4HR PRN 12/28/16 10/25/17 Cholecalciferol (D-3) [Vitamin D] 2,500 unit PO DAILY 12/29/16 10/25/17 Tramadol HCl [Ultram] 50 mg PO QID PRN 10/25/17 10/25/17 Allergies Allergy/AdvReac Type Severity Reaction Status Date / Time Corticosteroids Allergy SWELLING Verified 10/25/17 14:16 (Glucocorticoids) promethazine [From Phenergan] AdvReac Intermediate Confusion Verified 10/25/17 10:21 aspirin AdvReac PATIENT Verified 10/25/17 14:16 HAD WEIGHT LOSS SURGERY,CONTRAINDICATED NSAIDS (Non-Steroidal AdvReac Abdominal Verified 10/25/17 10:21 Anti-Inflamma Pain Past Medical History - Past Medical History Medical history: Reports: diabetes, hypertension, myocardial infarction Surgical history: Reports: cholecystectomy, other (Recent gastric bypass surgery and hiatal hernia repair) Psychiatric history: Reports: no psych history - Social History Smoking Status: Never smoker Smokeless Tobacco Status: No Alcohol use: Reports: none Drug use: Reports: none Physical Exam - General Limitations: no limitations General appearance: alert, in no apparent distress Course Vital Signs Temperature 97.5 F L 10/25/17 10:21 Pulse Rate 56 10/25/17 10:21 Respiratory Rate 20 10/25/17 10:21 Blood Pressure 204/109 10/25/17 10:21 O2 Sat by Pulse Oximetry 99 10/25/17 10:21 Temperature 97.5 F L 10/25/17 10:41 Pulse Rate 56 10/25/17 10:41 Respiratory Rate 20 10/25/17 10:41 Blood Pressure 204/109 10/25/17 10:41 O2 Sat by Pulse Oximetry 99 10/25/17 10:41 Oxygen Delivery Oxygen Delivery Room Air Medical Decision Making - Lab Data Result diagrams: 10/25/17 11:19 10/25/17 11:19 Lab Results 10/25/17 10/25/17 10/25/17 Range/Units 11:19 11:19 11:19 WBC 10.7 (4.3-11.1) K/mcL RBC 4.90 (3.82-4.97) M/mcL Hgb 14.1 (11.5-15.4) g/dL Hct 40.8 (35.3-44.9) % MCV 83.3 (83.0-100.0) fL MCH 28.8 (28.0-33.3) pg MCHC 34.6 (31.6-35.5) g/dL RDW 12.9 (11.5-14.5) % Plt Count 231 (140-400) K/mcL MPV 9.7 (9.4-12.4) fL Immature Gran % 0.4 (0-4) % Seg Neutrophils % 79.8 % Lymphocytes % 13.2 % Monocytes % 5.6 % Eosinophils % 0.5 % Basophils % 0.5 % Neutrophils # 8.6 (1.6-8.9) K/mcL Lymphocytes # 1.4 (0.6-4.6) K/mcL Monocytes # 0.6 (0.0-1.3) K/mcL Eosinophils # 0.1 (0.0-0.6) K/mcL Basophils # 0.1 (0.0-0.2) K/mcL Sodium 141 (136-145) mEq/L Potassium 3.8 (3.5-5.1) mEq/L Chloride 104 (98-107) mEq/L Carbon Dioxide 32 H (23-29) mEq/L BUN 12 (6-20) mg/dL Creatinine 0.59 L (0.60-1.20) mg/dL Est GFR ( Amer) > 60 (> 60) Est GFR (Non-Af Amer) > 60 (> 60) BUN/Creatinine Ratio 20 (6-26) Glucose 105 (70-105) mg/dL Calculated Osmolality 292 (280-300) Calcium 9.6 (8.6-10.3) mg/dL Total Bilirubin 1.2 H (0.3-1.0) mg/dL Direct Bilirubin 0.2 (0.0-0.2) mg/dL Indirect Bilirubin 1.0 (0.0-1.2) mg/dL AST 19 (13-39) Units/L ALT 18 (7-52) Units/L Alkaline Phosphatase 55 (34-104) Units/L Troponin I < 0.03 (< 0.04) ng/mL Serum Total Protein 6.9 (6.4-8.9) g/dL Albumin 4.1 (3.5-5.7) g/dL Globulin 2.8 (2.4-3.5) g/dL Albumin/Globulin Ratio 1.5 (1.1-2.2) Lipase 19 (11-82) Units/L Attestation Statement - Attestation Attestation: I examined this patient and my medical decision-making was reviewed with the Resident Physician. I agree with the documented findings, disposition and treatment plan as described except to the extent set forth below. Patient to the ED with a chief complaint of headache. From the back of her head to her eyes. Onset a couple of days ago. She is concerned because she has had multiple family members have had aneurysms. Blood pressure has been high as well. On examination she is awake alert and appropriate. She is moving all extremities. Pupils equally reactive. No nystagmus. Plan. CTA head and neck. CTA is do not show any aneurysms. Patient admitted for further treatment and workup.
[2017-10-25 11:31] LABS: Basophils # 0.1 K/mcL (0.0-0.2); Basophils % 0.5 %; Eosinophils # 0.1 K/mcL (0.0-0.6); Eosinophils % 0.5 %; Hematocrit 40.8 % (35.3-44.9); Hemoglobin 14.1 g/dL (11.5-15.4); Immature Granulocytes % 0.4 % (0-4); Lymphocytes # 1.4 K/mcL (0.6-4.6); Lymphocytes % 13.2 %; Mean Corpuscular HGB Conc 34.6 g/dL (31.6-35.5); Mean Corpuscular Hemoglobin 28.8 pg (28.0-33.3); Mean Corpuscular Volume 83.3 fL (83.0-100.0); Mean Platelet Volume 9.7 fL (9.4-12.4); Monocytes # 0.6 K/mcL (0.0-1.3); Monocytes % 5.6 %; Neutrophils # 8.6 K/mcL (1.6-8.9); Platelet Count 231 K/mcL (140-400); Red Cell Distribution Width 12.9 % (11.5-14.5); Segmented Neutrophils % 79.8 %
[2017-10-25 11:51] LABS: Alanine Aminotransferase 18 Units/L (7-52); Albumin 4.1 g/dL (3.5-5.7); Albumin/Globulin Ratio 1.5 (1.1-2.2); Alkaline Phosphatase 55 Units/L (34-104); Aspartate Amino Transferase 19 Units/L (13-39); BUN/Creatinine Ratio 20 (6-26); Bilirubin,Direct 0.2 mg/dL (0.0-0.2); Bilirubin,Total 1.2 mg/dL (0.3-1.0); Blood Urea Nitrogen 12 mg/dL (6-20); Calcium 9.6 mg/dL (8.6-10.3); Carbon Dioxide 32 mEq/L (23-29); Chloride 104 mEq/L (98-107); Globulin 2.8 g/dL (2.4-3.5); Glucose 105 mg/dL (70-105); Osmolality,Calculated 292 (280-300); Potassium 3.8 mEq/L (3.5-5.1); Sodium 141 mEq/L (136-145); Total Protein 6.9 g/dL (6.4-8.9); eGFR For African Americans > 60 (> 60); eGFR For Non-African Americans > 60 (> 60)
[2017-10-25 11:52] LABS: Lipase 19 Units/L (11-82); Troponin I < 0.03 ng/mL (< 0.04)
--- NOTE | 2017-10-25 14:17 | Internal Med History&Physical ---
Date of Encounter: 10/25/17 Time of Encounter: 09:00 Internal Medicine - H&P: HPI Chief complaint: headache and chest pain History of present illness: Ms. Lynch is a 57 year old female who presented with 2 days ago she developed a headache that is occipital and left-sided. she has a history of migraines. She states that she is also been nauseated and having some left-sided chest pain that is nonpleuritic, nonradiating. Nothing seems to make it better or worse. She states she is concerned because she has a extensive family history of multiple aneurysms in the brain. Neurological exam is relatively normal, but her cerebellar function on her left is a little bit slowed compared to the right. CTA of her head, neck, chest x-ray are pending. Past Med Surg Social Fam HX - Past Medical History Medical history: diabetes, hypertension, myocardial infarction Psychiatric history: no psych history - Past Surgical History Surgical History: cholecystectomy, other (Recent gastric bypass surgery and hiatal hernia repair) - Social History Smoking Status: Never smoker Smokeless Tobacco Status: No Alcohol use: none Drug use: none - Family History Mother Hx Family Cardiac Disorders: Yes (quad bypass, htn) Hx Family Neuromuscular Disorders: Yes (cva) Father Hx Family Cardiac Disorders: Yes Internal Medicine - H&P: Meds Calcium Carbonate [Calcium] 500 mg PO BID 12/28/16 [History] Cyanocobalamin (Vitamin B-12) [Vitamin B12] 1,000 mcg PO DAILY 12/28/16 [History ] Cyclobenzaprine [Flexeril] 10 mg PO HS PRN 12/28/16 [History] Multivitamin [Flintstones] 2 each PO DAILY 12/28/16 [History] Ondansetron ODT [Zofran ODT] 4 mg SL Q4HR PRN 12/28/16 [History] Cholecalciferol (D-3) [Vitamin D] 2,500 unit PO DAILY 12/29/16 [History] Tramadol HCl [Ultram] 50 mg PO QID PRN 10/25/17 [History] Gabapentin [Neurontin] 100 mg PO TID #90 capsule 10/26/17 [Rx] 3 Allergy/AdvReac Type Severity Reaction Status Date / Time Corticosteroids Allergy SWELLING Verified 10/25/17 14:16 (Glucocorticoids) promethazine [From Phenergan] AdvReac Intermediate Confusion Verified 10/25/17 10:21 aspirin AdvReac PATIENT Verified 10/25/17 14:16 HAD WEIGHT LOSS SURGERY,CONTRAINDICATED NSAIDS (Non-Steroidal AdvReac Abdominal Verified 10/25/17 10:21 Anti-Inflamma Pain All Systems PM: A 10-system review of systems was performed and is negative for pertinent findings except as documented above in the HPI. - Constitutional Constitutional: no chills, no fever(s), no night sweats - Cardiovascular Cardiovascular ROS IM: chest pain, no diaphoresis, no dyspnea, no lightheadedness, no palpitations, no syncope - Respiratory Respiratory: no cough, no dyspnea, no wheezing, no excessive phlegm production - Gastrointestinal Gastrointestinal: no abdominal pain, no diarrhea, no hematemesis, no hematochezia, no melena, no nausea, no vomiting - Genitourinary Genitourinary: no change in urinary stream, no dysuria, no flank pain, no hematuria - Constitutional Vitals: Temp Pulse Resp BP Pulse Ox 97.5 F L 56 20 204/109 99 10/25/17 10:41 10/25/17 10:41 10/25/17 10:41 10/25/17 10:41 10/25/17 10:41 General appearance: Present: A&O X 3 - Head Head exam: Present: atraumatic, normocephalic - Eye Eye exam: Present: PERRL, conjuntiva pink, sclera anicteric Pupils: Present: PERRL - Neck Neck exam general surgery: Present: supple, trachea midline. Absent: lymphadenopathy - Respiratory Respiratory exam: Present: CTAB. Absent: accessory muscle use, rales, rhonchi, wheezes - Cardiovascular Cardiovascular exam: Present: RRR, +S1, +S2. Absent: diastolic murmur, gallop, rubs, systolic murmur - GI/Abdominal GI/Abdominal exam: Present: normal bowel sounds, soft, no peritoneal signs. Absent: distended, tenderness - Extremities Exam Extremities exam: Present: warm, radial pulses palpable and symmetrical. Absent : calf tenderness, cyanotic, pedal edema - Neurological Exam Neurological exam: Present: CN II-XII intact, oriented X3, no focal deficits. Absent: pronater drift, facial droop, speech deficit Internal Med - H&P Results - Labs CBC & Chem 7: 05/21/18 05:31 10/26/17 05:31 - Assessment and plan (1) Headache Status: Acute Assessment and plan: Headache in the sitting of positive family history of aneurism and GI bleed, CTA is negative PLAN: -CPP x 2 q 8 hr -EKG now and in AM -Tylenol 650 mg PO q 4-6 hr PRN headache -Vasotec 1.25 mg IV q 6 hr PRN SBP> 160 Qualifiers: Headache type: unspecified Headache chronicity pattern: acute headache Intractability: not intractable Qualified Code(s): R51 - Headache (2) Chest pain Status: Deleted Assessment and plan: Atypical Chest pain DD *CAD *Muskuloskeletal CP - myofascial strain, costochondritis *GERD *Esophageal spasm *Pericarditis - unlikely *Pneumonia - no infiltrate on CXR CAD Risk ([place] all that apply): HTN Obesity PVD LDL FMH DM HDL Smoking Age Sedentary PLAN: - cardiac enzymes x 2 q 8 hr - EKG now and in AM - ASA - O2 by NC to keep SpO2 greater than 92% - UA - CBCD, BMP in AM - Fasting lipids - Tylenol 650 mg PO q 4-6 hr PRN headache - Home meds (check list) - Heparin 5000 U SQ BID - 2D Echo - Cardiology consult Qualifiers: Chest pain type: unspecified Qualified Code(s): R07.9 - Chest pain, unspecified (3) Type 2 diabetes mellitus Status: Chronic Assessment and plan: Not on Home meds, start Insulin sliding scale with moderate coverage. and check hgb a1c Qualifiers: Diabetes mellitus brand leader insulin use: without brand leader use Diabetes mellitus complication status: without complication Qualified Code(s): E11.9 - Type 2 diabetes mellitus without complications (4) Essential hypertension Status: Chronic Assessment and plan: Not on home meds, starting PRN antihypertensive (5) S/P gastric bypass Status: Chronic Assessment and plan: on multivitamins (6) DVT prophylaxis Status: Acute Assessment and plan: SC heparin - Time Spent With Patient Total time spent is greater than 50% in coordination of care (as documented) at patient's floor/unit and/or counseling patient:
[2017-10-25] MEDS ORDERED: Ondansetron ODT 4 MG TAB.RAPDIS SL PRN (15:48)
[2017-10-25] MEDS ORDERED: traMADol 50 MG TABLET PO PRN (15:48)
[2017-10-25] MEDS ORDERED: Naloxone 0.4 MG/ML INJ IVP PRN (15:54)
[2017-10-25] MEDS ORDERED: Acetaminophen 325 MG TABLET PO PRN (16:01)
[2017-10-25] MEDS: 0.9 % Sodium Chloride 1,000 ML IVC SCH (17:23)
[2017-10-26] MEDS: 0.9 % Sodium Chloride 1,000 ML IVC SCH (01:25)
[2017-10-26] MEDS ORDERED: Dextrose Gel 15 GM/37.5 ML TUBE PO PRN ×2 (04:14)
[2017-10-26] MEDS ORDERED: D5% in Water 1,000 ML IVC PRN (04:14)
[2017-10-26] MEDS ORDERED: *HR* Dextrose 50 % in Water (Syg) 50 ML SYRINGE IVP PRN (04:14)
[2017-10-26 06:33] LABS: INR 1.2; Prothrombin Time 12.8 Seconds (9.4-12.1)
[2017-10-26 06:36] LABS: Activated Partial Thrombo Time 34.1 Seconds (26.0-36.0)
[2017-10-26 06:48] LABS: Alanine Aminotransferase 13 Units/L (7-52); Albumin 3.6 g/dL (3.5-5.7); Alkaline Phosphatase 48 Units/L (34-104); Aspartate Amino Transferase 14 Units/L (13-39); BUN/Creatinine Ratio 29 (6-26); Bilirubin,Total 1.1 mg/dL (0.3-1.0); Blood Urea Nitrogen 14 mg/dL (6-20); Calcium 8.9 mg/dL (8.6-10.3); Carbon Dioxide 27 mEq/L (23-29); Chloride 108 mEq/L (98-107); Chol/HDL Ratio 4.1 (0-4.9); Cholesterol 198 mg/dL (< 200); Globulin 1.8 g/dL (2.4-3.5); Glucose 95 mg/dL (70-105); HDL Cholesterol 48 mg/dL (40-59); LDL Cholesterol,Calculated 135 mg/dL (0-99); Magnesium 2.1 mg/dL (1.6-2.6); Osmolality,Calculated 290 (280-300); Phosphorous 3.4 mg/dL (2.7-4.5); Potassium 3.7 mEq/L (3.5-5.1); Sodium 140 mEq/L (136-145); Total Protein 5.4 g/dL (6.4-8.9); Triglycerides 76 mg/dL (< 150); eGFR For African Americans > 60 (> 60); eGFR For Non-African Americans > 60 (> 60)
[2017-10-26] MEDS ORDERED: Insulin LISPRO 300 UNITS/3 ML VIAL SQ SCH ×2 (07:30→21:00)
[2017-10-26 08:11] LABS: Estimated Average Glucose 120 mg/dl; Hemoglobin A1C 5.8 %
[2017-10-26] MEDS ORDERED: Multivit/Ca/Min/Fe/FA 1 TAB TABLET PO SCH (09:00)
[2017-10-26] MEDS ORDERED: Cyanocobalamin (B-12) 1,000 MCG TABLET PO SCH (09:00)
[2017-10-26] MEDS ORDERED: Cholecalciferol (D-3) 1,000 UNIT TABLET PO SCH ×2 (09:00)
--- NOTE | 2017-10-26 10:02 | Cardiology Consult Note ---
Date of Encounter: 10/26/17 Time of Encounter: 09:30 Assessment and Plan (1) Chest pain Current Visit: No Status: Acute Per cardiology: -Admitted with severe headaches, HTN. -Reported had some neck pain that radiated into left arm and left chest. -Troponins negative x4. -ECG with no acute ischemic changes. -Not on asa due to gastric bypass surgey, not on BB due to bradycardia. -Average HR previous 24 hours 54, SB. Denies dizzines, lightheadedness. -Stress 12/2016 negative for ischemia or infarct. -TTE 12/2016 with LVEF 60%, mild diastolic dysfunction, no segmental wall motion abnormalities. -Patient states she does not feel that chest pain is cardiac and she would refuse further cardiac testing. -Agreeable for outpatient follow up. Follow up set. Qualifiers: Chest pain type: unspecified Qualified Code(s): R07.9 - Chest pain, unspecified (2) Bradycardia Current Visit: Yes Status: Acute Per cardiology: -ECG with SB, HR 49. -Average HR previous 12 hours noted to be 54, SB. -Denies dizzinnes, lightheadedness. -Previous ECG with SR, HR 70-80s. -Now with new thyroid nodule. -Last TSH normal 12/2016. -Consider repeating thyroid studies, if patient is agreeable to have completed as inpatient. -Avoid AV frank blockers. -Will arrange outpatient follow up. Discussion w patient/family: The assessment and plan as outlined above was discussed with the patient who expressed understanding and agreement. All questions were answered. Thank you for involving us in the care of your patient. Please call with any questions. Discussed and reviewed with . History of Present Illness Consult date: 10/25/17 Requesting physician: Heather Farley Consult reason: chest pain Chief complaint: headache History of present illness: Ms. Lynch is a 57 year old female with a relevant past medical history of HTN, GERD, fatty liver, gastric weight loss surgery 2017, back surgery, patient also reports history of [place] due to weight lss medication (reports never had LHC), who presented to [facility] with complaints of severe headache. Patient then reported she had neck pain that radiated to left arm and left side of chest. Denies exertional symptoms. Denies current chest pain. Denies shortness of breath or increased fatigue. Patient reports "I know this pain is because of something going on with my back." Past Med Surg Social Fam HX - Past Medical History Attestation: Yes The following information was validated with the patient. Source: patient, old records reviewed Medical history: diabetes, hypertension, myocardial infarction Psychiatric history: no psych history - Past Surgical History Surgical History: cholecystectomy, other (Recent gastric bypass surgery and hiatal hernia repair) - Social History Smoking Status: Never smoker Smokeless Tobacco Status: No Alcohol use: none Drug use: none - Family History Mother Hx Family Cardiac Disorders: Yes (quad bypass, htn) Hx Family Neuromuscular Disorders: Yes (cva) Father Hx Family Cardiac Disorders: Yes Medications and Allergies Calcium Carbonate [Calcium] 500 mg PO BID 12/28/16 [History] Cyanocobalamin (Vitamin B-12) [Vitamin B12] 1,000 mcg PO DAILY 12/28/16 [History ] Cyclobenzaprine [Flexeril] 10 mg PO HS PRN 12/28/16 [History] Multivitamin [Flintstones] 2 each PO DAILY 12/28/16 [History] Ondansetron ODT [Zofran ODT] 4 mg SL Q4HR PRN 12/28/16 [History] Cholecalciferol (D-3) [Vitamin D] 2,500 unit PO DAILY 12/29/16 [History] Tramadol HCl [Ultram] 50 mg PO QID PRN 10/25/17 [History] 3 Allergy/AdvReac Type Severity Reaction Status Date / Time Corticosteroids Allergy SWELLING Verified 10/25/17 14:16 (Glucocorticoids) promethazine [From Phenergan] AdvReac Intermediate Confusion Verified 10/25/17 10:21 aspirin AdvReac PATIENT Verified 10/25/17 14:16 HAD WEIGHT LOSS SURGERY,CONTRAINDICATED NSAIDS (Non-Steroidal AdvReac Abdominal Verified 10/25/17 10:21 Anti-Inflamma Pain All Systems Review: The remainder of the systems were reviewed and are negative - Constitutional Constitutional: headache(s) - Cardiovascular Cardiovascular: as per HPI, chest pain at rest - Musculoskeletal Musculoskeletal: back pain Physical Examination Vital Signs, Last 4 Hours Temp Pulse Resp BP Pulse Ox 10/26/17 06:27 98.3 F 56 16 145/79 96 General: Conversant, No Apparent Distress HEENT: Atraumatic, Normocephaly, Mucus Membranes Moist Neck: No JVD, Normal carotid pulses Cardiac: Reg Rate and Rhythm, Normal S1 and S2, No Murmur Lungs: Normal Breath Sounds, No Wheeze, Rales, Rhonchi Neuro: Alert and responsive, No focal deficits noted Abdomen: Soft, Non-Tender Skin: No rashes noted on visualized skin Musculoskeletal: No Chest Wall Tenderness Extremities: No Clubbing, No Cyanosis, No Edema, Normal Pulses Results 10/25/17 11:19 10/26/17 05:31 Lab Results Impressions Chest X-Ray 10/25/17 10:52 IMPRESSION: No acute cardiopulmonary process D/ : / 10/25/2017 11:18:55 Ranulfo Martinez MD / [facility] [email or web address] Interpreting Provider: Ranulfo Martinez MD Head CTA 10/25/17 10:52 IMPRESSION: 1. No acute intracranial abnormality. 2. Unremarkable CTA of the head. D/ / 10/25/2017 12:39:14 Amy Dillon MD / [facility] [email or web address] Interpreting Provider: Amy Dillon MD Neck CTA 10/25/17 10:52 IMPRESSION: No significant abnormality of the neck vessels. Multiple nodules are present in the thyroid gland. There is a 1.6 cm nodule in the left lobe of the thyroid. Thyroid ultrasound is suggested to further evaluate. RECOMMENDATIONS: Managing Incidental Thyroid Nodule Detected at CT or MRI or US 1. Further evaluation by thyroid Ultrasound recommended for these incidental nodules: Patient Age 18 years or less - Nodule of any size Patient Age 19-34 years old - Nodule 1 cm in size or greater Patient Age 35 years or more - Nodule 1.5 cm in size or greater Note: These recommendations do not apply to pts. w/ increased risk for thyroid cancer or pts. with symptomatic thyroid disease. Recommendations for f/u of Incidental Thyroid Nodules (ITN) found on CT, MR, NM and Extrathyroidal US are based upon the ACR white paper and Harkins 3-tiered system for managing ITNs: J Am Michael Radiol. 2014;12(2): 143-50 D/ / 10/25/2017 12:44:58 Amy Dillon MD / [facility] Interpreting Provider: Amy Dillon MD Active Medications Acetaminophen (Tylenol) 650 mg PO Q6HR PRN PRN Reason: Mild Pain/Fever Stop: 04/26/18 16:02 Cyanocobalamin (Vitamin B12) 1,000 mcg PO DAILY JOSE Stop: 04/27/18 09:01 Last Admin: 10/26/17 09:08 Dose: Not Given Cyclobenzaprine HCl (Flexeril) 10 mg PO HS PRN PRN Reason: Muscle Spasm Stop: 04/26/18 15:49 Dextrose/Water (Dextrose 50% (Syg)) 25 ml IVP AD PRN PRN Reason: Hypoglycemia Stop: 04/27/18 04:15 Glucagon (Glucagen) 1 mg IM ONCE PRN PRN Reason: Hypoglycemia Stop: 04/27/18 04:15 Glucose (Gluctose) 15 gm PO ONCE PRN PRN Reason: Hypoglycemia Stop: 04/27/18 04:15 Glucose (Gluctose) 30 gm PO ONCE PRN PRN Reason: Hypoglycemia Stop: 04/27/18 04:15 Heparin Sodium (Porcine) (Heparin Lock) 500 unit IV ONCE PRN PRN Reason: [place] while in RADIOLOGY Stop: 10/27/17 10:53 Dextrose (Dextrose 5%) 1,000 mls @ 100 mls/hr IVC .Q10H PRN PRN Reason: HYPOGLYCEMIA Stop: 04/27/18 04:15 Insulin Human Lispro (Humalog) 0 units SQ HS JOSE PRN Reason: Protocol Stop: 04/27/18 21:01 Insulin Human Lispro (Humalog) 0 units SQ TIDAC JOSE PRN Reason: Protocol Stop: 04/27/18 07:31 Last Admin: 10/26/17 09:08 Dose: Not Given Multivitamins/Calcium (Thera M Plus) 1 tab PO DAILY JOSE Stop: 04/27/18 09:01 Last Admin: 10/26/17 09:08 Dose: Not Given Naloxone HCl (Narcan) 0.4 mg IVP Q2MIN PRN PRN Reason: SEE COMMENTS Stop: 04/26/18 15:55 Ondansetron HCl (Zofran Odt) 4 mg SL Q4HR PRN PRN Reason: Nausea Stop: 04/26/18 15:49 Tramadol HCl (Ultram) 50 mg PO QID PRN PRN Reason: Moderate to Severe Pain Stop: 04/26/18 15:49 Vitamin D (Vitamin D) 1,000 unit PO DAILY JOSE Stop: 04/27/18 09:01 Last Admin: 10/26/17 09:08 Dose: Not Given Laboratory Tests 10/25/17 10/25/17 10/25/17 11:19 11:19 17:53 Hgb 14.1 Creatinine Troponin I < 0.03 < 0.03 10/25/17 10/26/17 10/26/17 22:03 05:31 05:31 Hgb Creatinine 0.48 L Troponin I < 0.03 < 0.03 - Imaging and Cardiology Chest Xray: report reviewed Stress Test: report reviewed Echo: report reviewed - EKG Interpretation EKG results cardiology: personally reviewed (ECG with SB, HR 49.), other ( Telemetry reviewed with average HR previous 12 hours noted to be 52, SB. PVCs and PACs noted.) Consult Discharge Plan - Plan Referrals: Jaime Gipson DO [Primary Care Provider] -
--- NOTE | 2017-10-26 10:04 | Discharge Summary ---
- NOTES TO OUTPATIENT PROVIDER Notes to Outpatient Provider: Will need thyroid ultrasound for further evaluation of multiple thyroid nodules. TSH pending at time of discharge Orders not resulted at time of discharge: Pending orders 10/25/17 16:44 ECG 12 lead ECG [ECG] Routine EV echocardiogram Routine 10/26/17 04:00 Complete Blood Count [HEME] AM 0400 Urinalysis reflex Microscopic [URIN] AM 0400 10/26/17 06:00 ECG 12 lead ECG [ECG] AM 0600 Date of Encounter: 10/26/17 Time of Encounter: 10:00 - Discharge Diagnosis (1) Headache Priority: Primary Status: Acute Assessment and Plan: Has known history of migraines. Presented to ED with severe headache. Head/ neck CTA nonacute. Headache improved with headache cocktail in the ED. Evaluated by neurology who suspect occipital neuralgia. Headache resolved at time of discharge. Follow-up with neurology outpatient for cervical spine MRI and occipital nerve shot. Discharge home on PRN gabapentin. Qualifiers: Headache type: unspecified Headache chronicity pattern: unspecified pattern Intractability: not intractable Qualified Code(s): R51 - Headache (2) CAD (coronary artery disease) Priority: Secondary Status: Acute Assessment and Plan: presented with neck pain that radiated into left arm and left chest. Has knonw CAD. Serial troponins negative. ECG with no acute ischemic changes. 12/2016 negative for ischemia or infarct. TTE 12/2016 with LVEF 60%, mild diastolic dysfunction, no segmental wall motion abnormalities. Evaluated by Cardiology who discussed possibility of LHC however patient refused (patient did not feel chest pain was cardiac related and did not want any further cardiac testing). No ASA due to gastric bypass surgery and no BB due to bradycardia. Patient advised to return to ER if chest pain recurs; verbalizes understanding. Follow- up with primary line technician outpatient Qualifiers: Coronary Disease-Associated Artery/Lesion type: [place] artery [place] vs. transplanted heart: [place] heart Associated angina: without angina Qualified Code(s): I25.10 - Atherosclerotic heart disease of [place] coronary artery without angina pectoris (3) Type 2 diabetes mellitus Priority: Secondary Status: Chronic Assessment and Plan: diet controlled. Hgb A1c 5.8% Qualifiers: Diabetes mellitus termite inspector insulin use: without mcc use Diabetes mellitus complication status: without complication Qualified Code(s): E11.9 - Type 2 diabetes mellitus without complications (4) Essential hypertension Priority: Secondary Status: Chronic Assessment and Plan: no offical dx of of hypertension. SBP in the 200s upon arrival. Likely secondary to acute pain with headache. BP normalized as headache resolved. Recommend follow-up with PCP within one week for BP recheck (5) S/P gastric bypass Priority: Secondary Status: Chronic Assessment and Plan: per hx. No acute needs. Follow-up outpatient PRN (6) Thyroid nodule Priority: Primary Status: Acute Assessment and Plan: CTA with multiple nodules in the thyroid gland; incidental finding. Will need outpatient thyroid ultrasound. TSH pending at time of discharge. Hospital course: See assessment and plan for Hospital course Discharge discussed with: patient (Seen and examined at bedside. Patient is new to me, information obtained from chart review and patient report. Patient says she feels back to baseline and would like to go home today. Headache is resolved. No further chest pain. Regarding her chest pain; patient reported neck pain that radiated to left shoulder and down into her chest. She did not feel was cardiac related. His cussed case with Dr. Lund and francesca to discharge home with outpatient follow-up. Also discussed case with [facility] cardiology FIELD SERVICES DIRECTOR who stated that patient was declining any further cardiac testing at this time and platelet for outpatient follow-up.) - Time Spent with Patient Total time spent providing and/or coordinating discharge services: - Discharge Medications Prescriptions: Gabapentin [Neurontin] 100 mg PO TID #90 capsule Home Medications: Calcium Carbonate [Calcium] 500 mg PO BID 12/28/16 [History] Cyanocobalamin (Vitamin B-12) [Vitamin B12] 1,000 mcg PO DAILY 12/28/16 [History ] Cyclobenzaprine [Flexeril] 10 mg PO HS PRN 12/28/16 [History] Multivitamin [Flintstones] 2 each PO DAILY 12/28/16 [History] Ondansetron ODT [Zofran ODT] 4 mg SL Q4HR PRN 12/28/16 [History] Cholecalciferol (D-3) [Vitamin D] 2,500 unit PO DAILY 12/29/16 [History] Tramadol HCl [Ultram] 50 mg PO QID PRN 10/25/17 [History] Gabapentin [Neurontin] 100 mg PO TID #90 capsule 10/26/17 [Rx] Allergies/Adverse Reactions: 3 Allergy/AdvReac Type Severity Reaction Status Date / Time Corticosteroids Allergy SWELLING Verified 10/25/17 14:16 (Glucocorticoids) promethazine [From Phenergan] AdvReac Intermediate Confusion Verified 10/25/17 10:21 aspirin AdvReac PATIENT Verified 10/25/17 14:16 HAD WEIGHT LOSS SURGERY,CONTRAINDICATED NSAIDS (Non-Steroidal AdvReac Abdominal Verified 10/25/17 10:21 Anti-Inflamma Pain Date of admission: 10/25/17 14:12 Primary care physician: Jaime Gipson DO Consults: 10/25/17 16:42 Consult to Cardiology [CONS] Routine Comment: Consulting Provider: Cardiology [facility] Reason for Consult: cp Time Notified: 16:45 Call Completed: No 10/25/17 16:44 Consult to Cardiac Rehabilitation-Phase1 [CONS] Routine Comment: Reason for Consult: AMI Call Completed: Yes Consult to Nurse Navigator [CONS] Routine Comment: 10/25/17 16:47 Consult to Neurology [CONS] Routine Consulting Provider: Neurology [facility] Reason for Consult: headache Time Notified: 16:52 Call Completed: Yes Discharging clinician: Katey Juares Anticipated date of discharge: 10/26/17 - Constitutional Vitals: Temp Pulse Resp BP Pulse Ox 98.3 F 56 16 145/79 96 10/26/17 06:27 10/26/17 06:27 10/26/17 06:27 10/26/17 06:27 10/26/17 06:27 General appearance: Present: A&O X 3 - Head Head exam: Present: atraumatic, normocephalic - Eye Eye exam: Present: PERRL, conjuntiva pink, sclera anicteric Pupils: Present: PERRL - Neck Neck exam general surgery: Present: supple, trachea midline. Absent: lymphadenopathy - Respiratory Respiratory exam: Present: CTAB. Absent: accessory muscle use, rales, rhonchi, wheezes - Cardiovascular Cardiovascular exam: Present: RRR, +S1, +S2. Absent: diastolic murmur, gallop, rubs, systolic murmur - GI/Abdominal GI/Abdominal exam: Present: normal bowel sounds, soft, no peritoneal signs. Absent: distended, tenderness - Extremities Exam Extremities exam: Present: warm, radial pulses palpable and symmetrical. Absent : calf tenderness, cyanotic, pedal edema - Neurological Exam Neurological exam: Present: CN II-XII intact, oriented X3, no focal deficits. Absent: pronater drift, facial droop, speech deficit - Skin Skin exam: Present: dry, intact - Patient Status Disposition: Home, Self-Care Condition: Good Functional capacity at discharge: independent ambulation Overall status at discharge: patient is back to baseline - Discharge Instructions Instructions: Gabapentin (By mouth), Acute Headache (DC), Thyroid Nodules (DC) Follow Up With: Jaime Gipson DO [Primary Care Provider] - Savana Lund MD [Partnered Physician] - (Please call the office within 2 weeks to schedule an appointment if you have not heard from them) - Diet and Activity Activity: increase activity as tolerated Diet: diabetic diet, low fat, low cholesterol
[2017-10-26 10:36] VITALS: BP 150/85
[2017-10-26 10:59] LABS: Basophils % 0.6 %; Eosinophils # 0.1 K/mcL (0.0-0.6); Eosinophils % 1.4 %; Hematocrit 38.2 % (35.3-44.9); Immature Granulocytes % 0.3 % (0-4); Lymphocytes # 2.3 K/mcL (0.6-4.6); Lymphocytes % 35.8 %; Mean Corpuscular Hemoglobin 29.1 pg (28.0-33.3); Mean Corpuscular Volume 85.5 fL (83.0-100.0); Mean Platelet Volume 10.5 fL (9.4-12.4); Monocytes # 0.5 K/mcL (0.0-1.3); Monocytes % 7.5 %; Neutrophils # 3.6 K/mcL (1.6-8.9); Platelet Count 217 K/mcL (140-400); Red Blood Count 4.47 M/mcL (3.82-4.97); Red Cell Distribution Width 13.1 % (11.5-14.5); Segmented Neutrophils % 54.4 %
--- NOTE | 2017-10-26 11:15 | Neurology - Consult Note ---
Date of Encounter: 10/26/17 Time of Encounter: 11:10 Assessment and Plan (1) Headache Current Visit: Yes Status: Acute This appears to be cervicogenic headaches resembling left occipital neuralgia, although it originated from the neck on the left side. She is not myelopathic. She also has some right shoulder pain and may at risk of having cervical radiculopathy at the higher level. Patients with occipital neuralgia usually ends up with unremarkable work up therefore i would recommend treating the pain empirically, with gabapentin or continue flexeril and she may benefit from outpatient occipital nerve blockade procedure. She may also benefit from getting MRI of cervical spine to assess cervical radiculopathy if not done inpatient this could be done as an outpatient. Patient can be discharged home and follow up in neuro if pain persists. Total time spent on this patient is approximately 50 minutes Qualifiers: Headache type: unspecified Headache chronicity pattern: acute headache Intractability: not intractable Qualified Code(s): R51 - Headache History of Present Illness Chief complaint: headache and neck pain HPI: Ms. Lynch is a 57 year old female with PMH significant for HTN, DM lumbar DDD, s /p lumbar surgery, chronic neck and shoulder pain who developed acute onset of neck paina nd headaches. She states that she has had lumbar back pain and has had surgery to her back and initially she was disabled but she wanted to work and ignored the doctors advise and went back to work and there are lots of things going on at her work and then she somehow been experiencing some right shoulder pain, neck pain and three days ago she started experiencing neck pain at the left neck and shoulder area and it also radiate to the left back of head at the left occipital nerve exiting point, a sore spot at the area and it also refer to the left eye although she denies any significant double vision, just a pressure type of discomforts. She states that she has lumbar pain and has flexeril and takes it as needed. SHe was admitted because she also complains of having chest pain, which is now resolved. She has no focal weakness, no speech difficulty and no other neurological discomforts. No nausea or vomiting or other autonomic symptoms. Does not appear to be significant discomforts. Initial CT of head showed no intracranial abnormality Past Med Surg Social Fam HX - Past Medical History Medical history: diabetes, hypertension, myocardial infarction Psychiatric history: no psych history - Past Surgical History Surgical History: cholecystectomy, other (Recent gastric bypass surgery and hiatal hernia repair) - Social History Smoking Status: Never smoker Smokeless Tobacco Status: No Alcohol use: none Drug use: none - Family History Mother Hx Family Cardiac Disorders: Yes (quad bypass, htn) Hx Family Neuromuscular Disorders: Yes (cva) Father Hx Family Cardiac Disorders: Yes Medications and Allergies Calcium Carbonate [Calcium] 500 mg PO BID 12/28/16 [History] Cyanocobalamin (Vitamin B-12) [Vitamin B12] 1,000 mcg PO DAILY 12/28/16 [History ] Cyclobenzaprine [Flexeril] 10 mg PO HS PRN 12/28/16 [History] Multivitamin [Flintstones] 2 each PO DAILY 12/28/16 [History] Ondansetron ODT [Zofran ODT] 4 mg SL Q4HR PRN 12/28/16 [History] Cholecalciferol (D-3) [Vitamin D] 2,500 unit PO DAILY 12/29/16 [History] Tramadol HCl [Ultram] 50 mg PO QID PRN 10/25/17 [History] Gabapentin [Neurontin] 100 mg PO TID #90 capsule 10/26/17 [Rx] 3 Allergy/AdvReac Type Severity Reaction Status Date / Time Corticosteroids Allergy SWELLING Verified 10/25/17 14:16 (Glucocorticoids) promethazine [From Phenergan] AdvReac Intermediate Confusion Verified 10/25/17 10:21 aspirin AdvReac PATIENT Verified 10/25/17 14:16 HAD WEIGHT LOSS SURGERY,CONTRAINDICATED NSAIDS (Non-Steroidal AdvReac Abdominal Verified 10/25/17 10:21 Anti-Inflamma Pain All Systems: The remainder of the systems were reviewed and are negative Physical Examination - Vital Signs Vital Signs: Initial Vital Signs Temp Pulse Resp BP Pulse Ox 97.5 F L 56 20 204/109 99 10/25/17 10:21 10/25/17 10:21 10/25/17 10:21 10/25/17 10:21 10/25/17 10:21 - Constitutional General appearance: comfortable - Neurologic Detailed motor examination: full strength in all major muscle groups Motor examination - right side: 5/5: deltoids, biceps, triceps, wrist flexion, wrist extension, finisher map and chart, hip flexors, tibialis Anterior, quadriceps, toe extension (EHL), plantarflexion Motor examination - left side: 5/5: deltoids, biceps, triceps, wrist flexion, wrist extension, hip flexors, finisher map and chart, quadriceps, tibialis Anterior, toe extension (EHL), plantarflexion Detailed sensory examination: intact Reflex and gait examination: intact Reflexes: Biceps: 2+, Triceps: 2+, Brachioradialis: 2+, Patella: 2+, Achilles: 2 + Mental Status Examination: awake, alert, oriented to person, oriented to place, oriented to time, follows commands appropriately, answers questions appropriately, no agnosia, no aphasia, no aproxia Cranial nerve examination: PERRL, EOMI, visual fagan intact, corneal reflexes brisk symmetrically, sensory to face intact, mastication intact, no facial asymmetry is present, no dysarthria, hearing is intact symmetrically, soft palate elevates bilaterally upon phonation, gag reflex intact, flexes SCM and trapezius muscles symmetrically with full power, tongue protrudes midline, no atrophy or facial fasiculations present Cerebellar examination: no dysmetria, performs finger to nose and heel to valadez symmetrically without ataxia, no gait ataxia, no truncal ataxia, no difficulty with rapid alternating movements Results - Laboratory Findings CBC and BMP: 10/26/17 05:31 10/26/17 05:31 Abnormal lab findings: Abnormal lab results PT 12.8 Seconds (9.4-12.1) H 10/26/17 05:31 Chloride 108 mEq/L (98-107) H 10/26/17 05:31 Creatinine 0.48 mg/dL (0.60-1.20) L 10/26/17 05:31 BUN/Creatinine Ratio 29 (6-26) H 10/26/17 05:31 Hemoglobin A1c 5.8 % (-5.6) H 10/26/17 05:31 Total Bilirubin 1.1 mg/dL (0.3-1.0) H 10/26/17 05:31 Serum Total Protein 5.4 g/dL (6.4-8.9) L 10/26/17 05:31 Globulin 1.8 g/dL (2.4-3.5) L 10/26/17 05:31 LDL Cholesterol, Calc 135 mg/dL (0-99) H 10/26/17 05:31 - Diagnostic Findings Additional findings: CTA OF THE HEAD WITHOUT AND WITH CONTRAST 10/25/2017 12:30 pm TECHNIQUE: CTA of the head/brain was performed without and with the administration of intravenous contrast. Multiplanar reformatted images are provided for review. MIP images are provided for review. Dose modulation, iterative reconstruction, and/or weight based adjustment of the mA/kV was utilized to reduce the radiation dose to as low as reasonably achievable. COMPARISON: None HISTORY: ORDERING SYSTEM PROVIDED HISTORY: headache, syncope, fam h/o aneurysm 75 ml of ISOVUE 370 Initial evaluation. FINDINGS: CT HEAD: BRAIN/VENTRICLES: The ventricles and cisternal spaces are normal in size, shape, and configuration for the age of the patient. No areas of abnormal attenuation are identified in the brain parenchyma. There is no midline shift or mass effect. No hemorrhage is identified in the brain parenchyma. ORBITS: The visualized portion of the orbits demonstrate no acute abnormality. SINUSES: The visualized paranasal sinuses and mastoid air cells are clear. SOFT TISSUES/SKULL: No acute abnormality of the visualized skull or soft tissues. CTA HEAD: ANTERIOR CIRCULATION: The internal carotid arteries are normal in course and caliber without focal stenosis. The anterior cerebral and middle cerebral arteries demonstrate no focal stenosis. No aneurysm is identified. POSTERIOR CIRCULATION: The posterior cerebral arteries demonstrate no focal stenosis. The vertebral and basilar arteries appear unremarkable. CT/CT angio head IMPRESSION: 1. No acute intracranial abnormality. 2. Unremarkable CTA of the head. CTA OF THE NECK 10/25/2017 12:30 pm TECHNIQUE: CTA of the neck was performed with the administration of intravenous contrast. Multiplanar reformatted images are provided for review. MIP images are provided for review. Stenosis of the internal carotid arteries measured using NASCET criteria. Dose modulation, iterative reconstruction, and/or weight based adjustment of the mA/kV was utilized to reduce the radiation dose to as low as reasonably achievable. COMPARISON: None. HISTORY: ORDERING SYSTEM PROVIDED HISTORY: headache, syncope, fam h/o aneurysm 75 ml of ISOVUE 370 Initial evaluation. FINDINGS: AORTIC ARCH/ARCH VESSELS: There is a normal branch pattern of the aortic arch. No significant stenosis is seen of the innominate artery or subclavian arteries. CAROTID ARTERIES: The common carotid arteries are normal in appearance without evidence of a flow limiting stenosis. The internal carotid arteries are normal in appearance without evidence of a flow limiting stenosis by NASCET criteria. No dissection or arterial injury is seen. There is minimal atherosclerotic disease in the right carotid bulb without any stenosis using NASCET criteria. VERTEBRAL ARTERIES: The vertebral arteries both arise from the subclavian arteries and are normal in caliber without evidence of flow limiting stenosis or dissection. SOFT TISSUES: No acute abnormality of the soft tissues of the neck are identified. There are a few small lymph nodes in the neck that are nonspecific. There is no abnormality of the visualized portion of the lung apices. There are several small nodules in the right lobe of the thyroid. There is a larger nodule in the left lobe of the thyroid measuring 1.6 cm. Thyroid ultrasound is suggested to further evaluate. BONES: The visualized osseous structures appear unremarkable. CT/CT angio neck IMPRESSION: No significant abnormality of the neck vessels. Multiple nodules are present in the thyroid gland. There is a 1.6 cm nodule in the left lobe of the thyroid. Thyroid ultrasound is suggested to further evaluate. RECOMMENDATIONS: Managing Incidental Thyroid Nodule Detected at CT or MRI or US 1. Further evaluation by thyroid Ultrasound recommended for these incidental nodules: Patient Age 18 years or less - Nodule of any size Patient Age 19-34 years old - Nodule 1 cm in size or greater Patient Age 35 years or more - Nodule 1.5 cm in size or greater Note: These recommendations do not apply to pts. w/ increased risk for thyroid cancer or pts. with symptomatic thyroid disease. Recommendations for f/u of Incidental Thyroid Nodules (ITN) found on CT, MR, NM and Extrathyroidal US are based upon the ACR white paper and Harkins 3-tiered system for managing ITNs: J Am Michael Radiol. 2015 Jul;12(2): 143-50 Consult Discharge Plan - Plan Instructions: Gabapentin (By mouth), Acute Headache (DC), Thyroid Nodules (DC) Referrals: Jaime Gipson DO [Primary Care Provider] - Savana Lund MD [Partnered Physician] - 11/11/17 10:00 am (Please call the office within 2 weeks to schedule an appointment if you have not heard from them) Prescriptions: Gabapentin [Neurontin] 100 mg PO TID #90 capsule
--- NOTE | 2017-10-26 14:09 | Electrocardiograph Report ---
[place] [id number] Test Date: 2017-10-25 Pat Name: Xenia Lynch Department: 104 Room: 3B48 Gender: F [employer]icult[employer] Professor: ZENAIDA : [id number] Requested By: [id number] Order Number: [id number] Reading MD: Nova Moralez Measurements Intervals [place] Rate: 49 P: 38 UT: 164 QRS: 25 QRSD: 100 T: 24 QT: 446 QTc: 415 Interpretive Statements SINUS BRADYCARDIA MODERATE ST DEPRESSION [0.05+ mV ST DEPRESSION] Electronically Signed On 10-26-2017 14:07:33 EDT by Nova Moralez
== END 2017-10-26 12:39 | disposition home or self-care (01) ==
LOC: EMEROO 10:16 → 3ANU 10:16 → 3BNU 14:17
PROVIDERS: ADMIT Internal Medicine Nephrology; ATTEND Internal Medicine Nephrology

== ENCOUNTER 2018-05-29 17:03 | Inpatient (IN) ==
--- NOTE | 2018-05-29 17:25 | Emergency Department Note ---
Disposition Clinical Impression: Lacunar stroke of left subthalamic region Disposition: Admitted As Inpatient Condition: Good Referrals: Jaime Gipson DO [Primary Care Provider] - Forms: ED Satisfaction Letter Time of Disposition: 21:12 General Adult HPI - General Chief complaint: ED Neuro Symptoms/Deficit Stated complaint: hand numbness, facial tingling Time Seen by Provider: 05/29/18 17:11 Source: patient Mode of arrival: ambulatory Limitations: no limitations - History of Present Illness HPI Narrative: This is a 57-year-old female who comes to emergency department reporting neurologic symptoms that began and then again 21 hours prior to arrival. She states that on both occasions she had slurred speech with facial drooping that was noticed by a relative. She states that the symptoms resolved completely in less than 2 minutes. She has had no symptoms in the last 21 hours except for what she describes as numbness in her right arm, but came with concern for a family history of strokes. Pain Scale: 0 - Related Data Home Medications Medication Instructions Recorded Confirmed Calcium Carbonate [Calcium] 500 mg PO BID 12/28/16 10/25/17 Cyanocobalamin (Vitamin B-12) 1,000 mcg PO DAILY 12/28/16 10/25/17 [Vitamin B12] Cyclobenzaprine [Flexeril] 10 mg PO HS PRN 12/28/16 10/25/17 Multivitamin [Flintstones] 2 each PO DAILY 12/28/16 10/25/17 Ondansetron ODT [Zofran ODT] 4 mg SL Q4HR PRN 12/28/16 10/25/17 Cholecalciferol (D-3) [Vitamin D] 2,500 unit PO DAILY 12/29/16 10/25/17 Tramadol HCl [Ultram] 50 mg PO QID PRN 10/25/17 10/25/17 Previous Rx's Medication Instructions Recorded Gabapentin [Neurontin] 100 mg PO TID #90 capsule 10/26/17 Allergies Allergy/AdvReac Type Severity Reaction Status Date / Time Corticosteroids Allergy SWELLING Verified 05/29/18 17:08 (Glucocorticoids) promethazine [From Phenergan] AdvReac Intermediate Confusion Verified 05/29/18 17:08 aspirin AdvReac PATIENT Verified 05/29/18 17:08 HAD WEIGHT LOSS SURGERY,CONTRAINDICATED NSAIDS (Non-Steroidal AdvReac Abdominal Verified 05/29/18 17:08 Anti-Inflamma Pain All systems ED: reviewed and negative except as stated. Neurological: Reports: weakness (Facial weakness), other (Slurred speech) Past Medical History - Past Medical History Medical history: Reports: diabetes, hypertension, myocardial infarction Surgical history: Reports: cholecystectomy, other (Recent gastric bypass surgery and hiatal hernia repair) Psychiatric history: Reports: no psych history - Social History Smoking Status: Never smoker Smokeless Tobacco Status: No Alcohol use: Reports: none Drug use: Reports: none Physical Exam - General Limitations: no limitations General appearance: alert, in no apparent distress - Head Head exam: atraumatic, normocephalic, normal inspection - Eye Eye exam: Present: normal appearance, PERRL, EOMI. Absent: scleral icterus, conjunctival injection - Chest Chest inspection: Present: normal inspection, symmetric chest wall rise - Respiratory Respiratory exam: Present: normal lung sounds bilaterally - Cardiovascular Cardiovascular exam: Present: regular rate, normal rhythm, normal heart sounds - Abdominal Exam Abdominal exam: Present: soft, Non-Tender. Absent: tenderness, distention, guarding, rebound, rigidity - Extremities Exam Extremities exam: Present: normal inspection, full ROM. Absent: tenderness, pedal edema - Neurological Exam Neurological exam: Present: alert, oriented X3, CN II-XII intact, normal gait. Absent: motor sensory deficit - Expanded Neurological Exam Patient oriented to: Present: person, place, time Speech: Present: fluid speech Cranial nerves: EOM function (II, III, IV, ): Normal, facial sensation (V): Normal, facial palsy (VII): Normal, gag reflex (IX): Normal, spinal accessory function (XI): Normal, tongue deviation (XII): Normal Cerebellar function: finger to nose: Normal Motor strength - LUE: 5/5 Motor strength - RUE: 5/5 Motor strength - LLE: 5/5 Motor strength - RLE: 5/5 Coma Scale Eye Opening: Spontaneous Coma Scale Motor Response: Obeys Commands Coma Scale Verbal Response: Oriented Coma Scale Total: 15 - Psychiatric Psychiatric exam: Present: normal affect, normal mood - Skin Skin exam: Present: warm, dry, intact, normal color Course Course Narrative: This is a 57-year-old female who reports symptoms most consistent with a TIA that occurred 21 and 22-1/2 hours prior to arrival. Vital Signs Temperature 98.2 F 05/29/18 17:05 Pulse Rate 83 05/29/18 17:05 Respiratory Rate 16 05/29/18 17:05 Blood Pressure 193/103 05/29/18 17:05 O2 Sat by Pulse Oximetry 98 05/29/18 17:05 Temperature 98.2 F 05/29/18 17:13 Pulse Rate 82 05/29/18 17:26 Respiratory Rate 18 05/29/18 17:26 Blood Pressure 189/100 05/29/18 17:26 O2 Sat by Pulse Oximetry 100 05/29/18 17:26 Oxygen Delivery Oxygen Delivery Room Air Medical Decision Making - MDM Narrative Medical decision making narrative: This is a 57-year-old female who sustained an acute lacunar stroke affecting the left side of the thalamus. This accounts for the paresthesias of the right side of the face and the right arm. I discussed her case with the on-call hospitalist, who accepted her for admission - Lab Data Lab results reviewed: Yes I reviewed the patient's lab results. Lab results narrative: CBC was unremarkable BMP showed slight hypokalemia at 3.4 Troponin was low INR was normal at 1.0 Result diagrams: 05/29/18 17:16 05/29/18 17:16 Lab Results 05/29/18 05/29/18 05/29/18 Range/Units 17:14 17:16 17:16 WBC 9.3 (4.3-11.1) K/mcL RBC 5.26 H (3.82-4.97) M/mcL Hgb 14.7 (11.5-15.4) g/dL Hct 43.9 (35.3-44.9) % MCV 83.5 (83.0-100.0) fL MCH 27.9 L (28.0-33.3) pg MCHC 33.5 (31.6-35.5) g/dL RDW 12.8 (11.5-14.5) % Plt Count 295 (140-400) K/mcL MPV 9.6 (9.4-12.4) fL PT 11.5 (9.4-12.1) Seconds INR 1.0 Sodium (136-145) mEq/L Potassium (3.5-5.1) mEq/L Chloride (98-107) mEq/L Carbon Dioxide (23-29) mEq/L BUN (6-20) mg/dL Creatinine (0.60-1.20) mg/dL Est GFR ( Amer) (> 60) Est GFR (Non-Af Amer) (> 60) BUN/Creatinine Ratio (6-26) Glucose (70-105) mg/dL POC Glucose 125 H (70-99) mg/dL Calculated Osmolality (280-300) Calcium (8.6-10.3) mg/dL Troponin I (< 0.04) ng/mL 05/29/18 Range/Units 17:16 WBC (4.3-11.1) K/mcL RBC (3.82-4.97) M/mcL Hgb (11.5-15.4) g/dL Hct (35.3-44.9) % MCV (83.0-100.0) fL MCH (28.0-33.3) pg MCHC (31.6-35.5) g/dL RDW (11.5-14.5) % Plt Count (140-400) K/mcL MPV (9.4-12.4) fL PT (9.4-12.1) Seconds INR Sodium 138 (136-145) mEq/L Potassium 3.4 L (3.5-5.1) mEq/L Chloride 101 (98-107) mEq/L Carbon Dioxide 32 H (23-29) mEq/L BUN 14 (6-20) mg/dL Creatinine 0.65 (0.60-1.20) mg/dL Est GFR ( Amer) > 60 (> 60) Est GFR (Non-Af Amer) > 60 (> 60) BUN/Creatinine Ratio 22 (6-26) Glucose 151 H (70-105) mg/dL POC Glucose (70-99) mg/dL Calculated Osmolality 289 (280-300) Calcium 9.7 (8.6-10.3) mg/dL Troponin I < 0.03 (< 0.04) ng/mL - EKG Data EKG #1 EKG attestation: Yes I reviewed and interpreted this EKG. EKG results narrative: ECG shows sinus rhythm with frequent multiform PVCs, ST depression seen in leads 1, 2, aVF, V3 through V6; slight ST elevation in V1 Critical Care Time Critical Care Time: No
[2018-05-29 17:41] LABS: Hematocrit 43.9 % (35.3-44.9); Hemoglobin 14.7 g/dL (11.5-15.4); Mean Corpuscular HGB Conc 33.5 g/dL (31.6-35.5); Mean Corpuscular Hemoglobin 27.9 pg (28.0-33.3); Mean Corpuscular Volume 83.5 fL (83.0-100.0); Mean Platelet Volume 9.6 fL (9.4-12.4); Platelet Count 295 K/mcL (140-400); Red Blood Count 5.26 M/mcL (3.82-4.97); Red Cell Distribution Width 12.8 % (11.5-14.5)
[2018-05-29 17:48] LABS: Prothrombin Time 11.5 Seconds (9.4-12.1)
[2018-05-29 17:52] LABS: BUN/Creatinine Ratio 22 (6-26); Blood Urea Nitrogen 14 mg/dL (6-20); Calcium 9.7 mg/dL (8.6-10.3); Carbon Dioxide 32 mEq/L (23-29); Chloride 101 mEq/L (98-107); Glucose 151 mg/dL (70-105); Osmolality,Calculated 289 (280-300); Potassium 3.4 mEq/L (3.5-5.1); Sodium 138 mEq/L (136-145); Troponin I < 0.03 ng/mL (< 0.04); eGFR For Non-African Americans > 60 (> 60)
--- NOTE | 2018-05-29 21:08 | Internal Med History&Physical ---
Date of Encounter: 05/29/18 Time of Encounter: 21:06 Internal Medicine - H&P: HPI Chief complaint: slurred speech with facial drooping History of present illness: This is a 57-year-old female who comes to emergency department reporting slurred speech with facial drooping that was noticed by a relative yesterday. She states that the symptoms resolved completely in less than 2 minutes. She was admitted for further evaluation and management of CVA. MRI of the brain revealed Acute ischemic lacunar infarct in the left thalamus. Past Med Surg Social Fam HX - Past Medical History Medical history: diabetes, hypertension, myocardial infarction Psychiatric history: no psych history - Past Surgical History Surgical History: cholecystectomy, other (Recent gastric bypass surgery and hiatal hernia repair) Additional surgical history: GASTRIC SLEEVE. UTERINE ABLASION. D/C. back surgery x2 - Social History Smoking Status: Never smoker Smokeless Tobacco Status: No Alcohol use: none Drug use: none - Family History Brother Age: 62 Living Status: Still Living Father Hx Family Cardiac Disorders: Yes Mother Hx Family Cardiac Disorders: Yes (quad bypass, htn) Hx Family Neuromuscular Disorders: Yes (cva) Internal Medicine - H&P: Meds RX: Calcium Carbonate [Calcium] 500 mg PO BID 12/28/16 [History] RX: Cyanocobalamin (Vitamin B-12) [Vitamin B12] 1,000 mcg PO DAILY 12/28/16 [History] RX: Cyclobenzaprine [Flexeril] 10 mg PO HS PRN 12/28/16 [History] RX: Multivitamin [Flintstones] 2 each PO DAILY 12/28/16 [History] RX: Cholecalciferol (D-3) [Vitamin D] 2,500 unit PO DAILY 12/29/16 [History] RX: Atorvastatin [Lipitor] 10 mg PO HS 30 Days #30 tablet 05/30/18 [Rx] RX: Clopidogrel [Plavix] 75 mg PO DAILY 30 Days #30 tablet 05/30/18 [Rx] Allergy/AdvReac Type Severity Reaction Status Date / Time Corticosteroids Allergy SWELLING Verified 05/30/18 11:16 (Glucocorticoids) promethazine [From Phenergan] AdvReac Intermediate Confusion Verified 05/30/18 11:16 aspirin AdvReac See Verified 05/30/18 11:16 Comments NSAIDS (Non-Steroidal AdvReac See Verified 05/30/18 11:16 Anti-Inflamma Comments All Systems PM: A 10-system review of systems was performed and is negative for pertinent findings except as documented above in the HPI. - Constitutional Constitutional: no chills, no fever(s), no night sweats - EENT Eyes: no change in vision, no discharge, no pain, no photophobia Ears: no ear discharge, no ear pain, no tinnitus Nose, mouth and throat: no dysphagia, no nasal discharge, no neck pain, no sore throat - Cardiovascular Cardiovascular ROS IM: no chest pain, no diaphoresis, no dyspnea, no lightheadedness, no palpitations, no syncope - Respiratory Respiratory: no cough, no dyspnea, no wheezing, no excessive phlegm production - Gastrointestinal Gastrointestinal: no abdominal pain, no diarrhea, no hematemesis, no hematoch ezia, no melena, no nausea, no vomiting - Neurological Neurological ROS: abnormal speech, focal weakness, numbness, tingling, no confusion, no convulsions, no tremor(s) - Constitutional Vitals: Temp Pulse Resp BP Pulse Ox 98.2 F 82 18 189/100 100 05/29/18 17:13 05/29/18 17:26 05/29/18 17:26 05/29/18 17:26 05/29/18 17:26 General appearance: Present: A&O X 3 Exam: see below - Head Head exam: Present: atraumatic, normocephalic - Neck Neck exam general surgery: Present: supple, trachea midline. Absent: lymphadenopathy - Respiratory Respiratory exam: Present: CTAB. Absent: accessory muscle use, rales, rhonchi, wheezes - Cardiovascular Cardiovascular exam: Present: RRR, +S1, +S2. Absent: diastolic murmur, gallop, rubs, systolic murmur - GI/Abdominal GI/Abdominal exam: Present: normal bowel sounds, soft, no peritoneal signs. Absent: distended, tenderness - Extremities Exam Extremities exam: Present: warm, radial pulses palpable and symmetrical. Absent: calf tenderness, cyanotic, pedal edema - Neurological Exam Neurological exam: Present: CN II-XII intact, oriented X3, no focal deficits. Absent: pronater drift, facial droop, speech deficit Internal Med - H&P Results - Labs CBC & Chem 7: 05/30/18 03:12 05/30/18 03:12 Labs: Short CBC 05/29/18 Range/Units 17:16 WBC 9.3 (4.3-11.1) K/mcL Hgb 14.7 (11.5-15.4) g/dL Hct 43.9 (35.3-44.9) % Plt Count 295 (140-400) K/mcL BMP 05/29/18 17:16 Sodium 138 Potassium 3.4 L Chloride 101 Carbon Dioxide 32 H BUN 14 Creatinine 0.65 Glucose 151 H Calcium 9.7 Cardiac Enzymes 05/29/18 Range/Units 17:16 Troponin I < 0.03 (< 0.04) ng/mL - Impressions ITS Impressions Head CT 05/29/18 17:21 IMPRESSION: No acute intracranial abnormality. Subtle asymmetric hypodense area involving the right cerebellar hemisphere could be artifactual or may represent remote infarct. Consider MRI correlation. D/ / 05/29/2018 18:07:33 Ranulfo Martinez MD / [facility] Interpreting Provider: Ranulfo Martinez MD Brain MRI 05/29/18 18:15 IMPRESSION: 1. Acute ischemic lacunar infarct in the left thalamus. 2. No hemorrhage or mass effect. 3. Mild chronic white matter microvascular ischemic changes. D/ / Quan Carr / [facility] Carr Interpreting Provider: Quan Carr - Assessment and plan (1) CVA (cerebral vascular accident) Status: Acute Assessment and plan: *CVA -Swallow evaluation at bedside- PLAN: -CPP x 2 q 8 hr -EKG now and in AM -ASA -UA -Tylenol 650 mg PO q 4-6 hr PRN headache Qualifiers: Qualified Code(s): I63.9 - Cerebral infarction, unspecified (2) Type 2 diabetes mellitus Status: Chronic Assessment and plan: We will continue home medication start patient on insulin sliding scale with moderate coverage Qualifiers: (3) Essential hypertension Status: Chronic Assessment and plan: We will continue home medication and continue to monitor while inpatient and adjust antihypertensive regimen accordingly (4) CAD (coronary artery disease) Status: Acute Qualifiers: (5) S/P gastric bypass Status: Chronic (6) DVT prophylaxis Status: Acute - Time Spent With Patient Total time spent is greater than 50% in coordination of care (as documented) at patient's floor/unit and/or counseling patient:
[2018-05-29] MEDS ORDERED: Acetaminophen 325 MG TABLET PO PRN (22:04)
[2018-05-29] MEDS ORDERED: *HR* HYDROcodone/Acet 5/325 mg TABLET PO PRN (22:04)
[2018-05-29] MEDS ORDERED: Naloxone 0.4 MG/ML INJ IVP PRN (22:04)
[2018-05-30 04:31] LABS: Hematocrit 38.9 % (35.3-44.9); Mean Corpuscular HGB Conc 33.2 g/dL (31.6-35.5); Mean Corpuscular Hemoglobin 27.9 pg (28.0-33.3); Platelet Count 251 K/mcL (140-400); Red Blood Count 4.63 M/mcL (3.82-4.97); Red Cell Distribution Width 12.9 % (11.5-14.5)
[2018-05-30 04:42] LABS: INR 1.1; Prothrombin Time 11.9 Seconds (9.4-12.1)
[2018-05-30 04:44] LABS: Hemoglobin 12.9 g/dL (11.5-15.4)
[2018-05-30 04:46] LABS: Activated Partial Thrombo Time 35.4 Seconds (26.0-36.0)
[2018-05-30 04:50] LABS: Alanine Aminotransferase 13 Units/L (7-52); Albumin 3.9 g/dL (3.5-5.7); Albumin/Globulin Ratio 1.6 (1.1-2.2); Alkaline Phosphatase 53 Units/L (34-104); Aspartate Amino Transferase 15 Units/L (13-39); BUN/Creatinine Ratio 25 (6-26); Bilirubin,Total 0.9 mg/dL (0.3-1.0); Blood Urea Nitrogen 15 mg/dL (6-20); Calcium 9.3 mg/dL (8.6-10.3); Carbon Dioxide 30 mEq/L (23-29); Chloride 104 mEq/L (98-107); Chol/HDL Ratio 4.4 (0-4.9); Cholesterol 235 mg/dL (< 200); Globulin 2.4 g/dL (2.4-3.5); Glucose 112 mg/dL (70-105); HDL Cholesterol 53 mg/dL (40-59); LDL Cholesterol,Calculated 168 mg/dL (0-99); Magnesium 2.3 mg/dL (1.6-2.6); Osmolality,Calculated 292 (280-300); Phosphorous 3.9 mg/dL (2.7-4.5); Potassium 3.7 mEq/L (3.5-5.1); Sodium 140 mEq/L (136-145); Total Protein 6.3 g/dL (6.4-8.9); Triglycerides 71 mg/dL (< 150); eGFR For Non-African Americans > 60 (> 60)
[2018-05-30] MEDS ORDERED: Dextrose Gel 15 GM/37.5 ML TUBE PO PRN ×2 (07:32)
[2018-05-30] MEDS ORDERED: *HR* Dextrose 50 % in Water (Syg) 50 ML SYRINGE IVP PRN (07:32)
[2018-05-30] MEDS ORDERED: D5% in Water 1,000 ML IVC PRN (07:32)
[2018-05-30] MEDS ORDERED: Multivit/Ca/Min/Fe/FA 1 TAB TABLET PO SCH (09:00)
[2018-05-30] MEDS ORDERED: Cyanocobalamin (B-12) 1,000 MCG TABLET PO SCH (09:00)
[2018-05-30] MEDS ORDERED: Cholecalciferol (D-3) 1,000 UNIT TABLET PO SCH (09:00)
--- NOTE | 2018-05-30 10:56 | Internal Med Progress Note ---
Hospitalist Progress Note - Encounter Date of Encounter: 05/30/18 - Subjective Interval History: Patient presented with speech and facial drooping found to have CVA on imaging; neurology consulted and pending for recommendations - Exam Vitals: Temp Pulse Resp BP Pulse Ox 98.1 F 55 16 167/95 98 05/30/18 09:16 05/30/18 09:16 05/30/18 09:16 05/30/18 09:16 05/30/18 09:16 - Assessment and Plan (1) CVA (cerebral vascular accident) Current Visit: Yes Status: Acute Assessment and Plan: Patient presented with speech and facial drooping found to have CVA on imaging MRI shows acute ischemic lacunar infarct in the left thalamus without hemorrhage or mass effect noted Neurology consulted and appreciate recommendations (2) Essential hypertension Current Visit: No Status: Chronic Assessment and Plan: Will allow permissive hypertension due to CVA above Holding any pretense of medications for now (3) Type 2 diabetes mellitus Current Visit: No Status: Chronic Assessment and Plan: Will cover with sliding scale insulin - Time Spent with Patient Total time spent is greater than 50% in coordination of care (as documented) at patient's floor/unit and/or counseling patient: Internal Medicine: Result - Labs CBC & Chem 7: 05/30/18 03:12 05/30/18 03:12 Labs: Short CBC 05/29/18 05/30/18 Range/Units 17:16 03:12 WBC 9.3 9.1 (4.3-11.1) K/mcL Hgb 14.7 12.9 D (11.5-15.4) g/dL Hct 43.9 38.9 (35.3-44.9) % Plt Count 295 251 (140-400) K/mcL BMP 05/29/18 05/30/18 17:16 03:12 Sodium 138 140 Potassium 3.4 L 3.7 Chloride 101 104 Carbon Dioxide 32 H 30 H BUN 14 15 Creatinine 0.65 0.61 Glucose 151 H 112 H Calcium 9.7 9.3 Cardiac Enzymes 05/29/18 Range/Units 17:16 Troponin I < 0.03 (< 0.04) ng/mL Liver Function 05/30/18 Range/Units 03:12 Total Bilirubin 0.9 (0.3-1.0) mg/dL AST 15 (13-39) Units/L ALT 13 (7-52) Units/L Alkaline Phosphatase 53 (34-104) Units/L Albumin 3.9 (3.5-5.7) g/dL - ABG Interpretation ABG results: PT/INR, D-dimer PT 11.9 Seconds (9.4-12.1) 05/30/18 03:12 - Impressions Impressions Head CT 05/29/18 17:21 IMPRESSION: No acute intracranial abnormality. Subtle asymmetric hypodense area involving the right cerebellar hemisphere could be artifactual or may represent remote infarct. Consider MRI correlation. D/ / 05/29/2018 18:07:33 Ranulfo Martinez MD / [facility] Interpreting Provider: Ranulfo Martinez MD Brain MRI 05/29/18 18:15 IMPRESSION: 1. Acute ischemic lacunar infarct in the left thalamus. 2. No hemorrhage or mass effect. 3. Mild chronic white matter microvascular ischemic changes. D/ / Quan Carr / [facility] Interpreting Provider: Quan Carr Echocardiogram 05/30/18 22:12 Impressions: Technically sub-optimal due to poor echocardiographic windows. LVEF 50-55%. Normal LV chamber size, wall thickness and function. Normal left ventricular diastolic function. Normal right ventricular structure and function. No evidence of PFO with agitated saline contrast. Aortic valve not well visualized.Suspect bicuspid aortic valve, recommend ANTACHA for clarification No aortic regurgitation. No evidence of pulmonary hypertension. Left Ventricular Wall Motion: Rest Echo Findings All wall segments showed normal motion. Findings: Study Quality * Technically sub-optimal due to poor echocardiographic windows. ECG Findings * Sinus bradycardia. Left Ventricle * LVEF 50-55%. * Normal LV chamber size, wall thickness and function. * Normal left ventricular diastolic function. Right Ventricle * Normal right ventricular structure and function. Left Atrium * Normal left atrial size. Right Atrium * Normal right atrial size. Interatrial Septum * No evidence of PFO with agitated saline contrast. Aortic Valve * Aortic valve not well visualized. * Suspect bicuspid aortic valve, recommend NATACHA for clarification * No aortic regurgitation. * No aortic stenosis. Mitral Valve * No mitral regurgitation. * No mitral stenosis. * Normal mitral valve structure. Tricuspid Valve * Trace tricuspid regurgitation. * No tricuspid stenosis. * Normal tricuspid valve structure. * No evidence of pulmonary hypertension. Pulmonic Valve * Pulmonic valve not well visualized. Aorta * Normally sized aortic root. Pericardium * The pericardium appears normal. IVC * Normal IVC dimensions and inspiratory collapse. Consult Discharge Plan - Plan Referrals: Jaime Gipson DO [Primary Care Provider] - (1) CVA (cerebral vascular accident) Qualifiers: Qualified Code(s): I63.9 - Cerebral infarction, unspecified (3) Type 2 diabetes mellitus Qualifiers:
[2018-05-30] MEDS ORDERED: Insulin LISPRO 300 UNITS/3 ML VIAL SQ SCH ×2 (11:30→21:00)
[2018-05-30 11:59] VITALS: BP 194/101
--- NOTE | 2018-05-30 14:31 | Neurology - Consult Note ---
Date of Encounter: 05/30/18 Time of Encounter: 11:27 Assessment and Plan (1) Thalamic infarct, acute Current Visit: Yes Status: Acute This patient who noted to have acute thalamic infarct on mri, without any significant focal neurological deficit suspect is a small vessel disease likely related to her fluctuating blood pressure as she is not been able to take her blood pressure medication on a regular basis because sometime it can go to low. Currently she is been on Plavix as she not able to take aspirin because of her history of gastric banding suggest to continue on Plavix that was started this admission along with low dose of Lipitor. Awaiting carotid duplex is negative patient could be discharged to home with follow-up with neurology. But strongly recommend that she should continue to take Plavix and Lipitor as well as medication for her blood pressure and that seemed to be fluctuating and likely the reason for her lacunar ischemic infarct. Discussed with the patient and the primary team in detail History of Present Illness HPI: Ms. Lynch is a 57 year old female who was admitted via emergency department, seen because of neurologic symptoms that began 22-/ and then again 21 hours prior to arrival. She states that on both occasions she had slurred speech with facial drooping that was noticed by a relative. She states that the symptoms resolved completely in less than 2 minutes. She has had no symptoms in the last 21 hours except for what she describes as numbness in her right arm, and face , she finally came to the hospital with with concern for a family history of strokes. Past Med Surg Social Fam HX - Past Medical History Medical history: diabetes, hypertension, myocardial infarction Psychiatric history: no psych history - Past Surgical History Surgical History: cholecystectomy, other (Recent gastric bypass surgery and hiatal hernia repair) Additional surgical history: GASTRIC SLEEVE. UTERINE ABLASION. D/C. back surgery x2 - Social History Smoking Status: Never smoker Smokeless Tobacco Status: No Alcohol use: none Drug use: none - Family History Mother Age: 88 Living Status: Still Living Hx Family Cardiac Disorders: Yes (quad bypass, htn) Hx Family Neuromuscular Disorders: Yes (cva) Father Living Status: Age at : 84 Cause of : blood clot Hx Family Cardiac Disorders: Yes Brother Age: 62 Living Status: Still Living Medications and Allergies Calcium Carbonate [Calcium] 500 mg PO BID 12/28/16 [History] Cyanocobalamin (Vitamin B-12) [Vitamin B12] 1,000 mcg PO DAILY 12/28/16 [History] Cyclobenzaprine [Flexeril] 10 mg PO HS PRN 12/28/16 [History] Multivitamin [Flintstones] 2 each PO DAILY 12/28/16 [History] Cholecalciferol (D-3) [Vitamin D] 2,500 unit PO DAILY 12/29/16 [History] Allergy/AdvReac Type Severity Reaction Status Date / Time Corticosteroids Allergy SWELLING Verified 05/30/18 11:16 (Glucocorticoids) promethazine [From Phenergan] AdvReac Intermediate Confusion Verified 05/30/18 11:16 aspirin AdvReac See Verified 05/30/18 11:16 Comments NSAIDS (Non-Steroidal AdvReac See Verified 05/30/18 11:16 Anti-Inflamma Comments All Systems: The remainder of the systems were reviewed and are negative Physical Examination - Vital Signs Vital Signs: Initial Vital Signs Temp Pulse Resp BP Pulse Ox 98.2 F 83 16 193/103 98 05/29/18 17:05 05/29/18 17:05 05/29/18 17:05 05/29/18 17:05 05/29/18 17:05 - Exam Exam: GENERAL: Comfortable in no acute distress HEENT: Normal LUNGS: CTA HEART: RRR, S1 S2 Audible, no murmur EXTREMITIES: No Pedal edema. DETAILED NEUROLOGICAL EXAMINATION: MENTAL STATUS: Oriented to person, place, date and situation. Memory: knows the President, Aware of recent events Recent Memory Intact, Attention span is normal Cranial Nerve Examination: CN - II: Visual Acuity, Field of Vision Normal, Fundus examination: No disk edema, Pupils- size shape reaction to light and accommodation: All normal. CN III, IV, : External ocular movements were intact, Pupils were reactive, Nodrooping of the eyelids CN V: Sensation over the face to light touch and pinprick all normal. Corneal reflexes not tested, jaw jerk normal. CN VII: No facial asymmetry, no flattening of nasolabial folds, no difficulty in closing the eyes, no loss of forehead wrinkles, no difficulty in eye-closure, frowning raising eyebrows. CNVIII: No significant hearing loss CN IX, X: Uvula centralized not deviated, Gag reflex: Not tested CN X1: Sternocleidomastoid, trapezius, normal or evidence of any weakness. CN X11: No Dysarthria, no wasting or fibrilation f tongue muscles, no deviation, tongue muscle strength normal. Motor examination: No hypertrophy, tone was normal, power grade 0-5 Upper limbs Proximal- No difficulty in lifting the arms above the head. Distal- No weakness in distal muscles On formal testing 5/5 all over Lower limbs On formal testing 5/5 all over Coordination: [id number] normal. Target pursuit normal finger tapping normal, Rapid alternating moment of wrist normal Sensory system: Superficial sensations- Touch normal. Pain- Pinprick, Temperature all normal, Deep sensation normal, Joint position sense normal. Cortical sensation, Tactile discrimination, localization and extinction all normal. Deep tendon reflexes. Symmetrical bilateral, No evidence of Babinski. No sign of meningeal irritation Gait Examination: Deferred - Constitutional General appearance: comfortable Results - Laboratory Findings CBC and BMP: 05/30/18 03:12 05/30/18 03:12 Abnormal lab findings: Abnormal lab results MCH 27.9 pg (28.0-33.3) L 05/30/18 03:12 Carbon Dioxide 30 mEq/L (23-29) H 05/30/18 03:12 Glucose 112 mg/dL (70-105) H 05/30/18 03:12 POC Glucose 125 mg/dL (70-99) H 05/29/18 17:14 Serum Total Protein 6.3 g/dL (6.4-8.9) L 05/30/18 03:12 Cholesterol 235 mg/dL (< 200) H 05/30/18 03:12 LDL Cholesterol, Calc 168 mg/dL (0-99) H 05/30/18 03:12 - Diagnostic Findings Additional findings: Acute ischemic lacunar infarct in the left thalamus. 2. No hemorrhage or mass effect. 3. Mild chronic white matter microvascular ischemic changes. Consult Discharge Plan - Plan Referrals: Jaime Gipson DO [Primary Care Provider] -
--- NOTE | 2018-05-30 14:51 | Discharge Summary ---
- NOTES TO OUTPATIENT PROVIDER Notes to Outpatient Provider: none Orders not resulted at time of discharge: Pending orders 05/29/18 17:22 ECG 12 lead ECG [ECG] Stat Date of Encounter: 05/30/18 Time of Encounter: 11:00 - Discharge Diagnosis (1) CVA (cerebral vascular accident) Priority: Primary Status: Acute Qualifiers: Qualified Code(s): I63.9 - Cerebral infarction, unspecified (2) Essential hypertension Priority: Primary Status: Chronic Hospital course: Patient is a 57-year-old female with past medical history significant for hypertension who presents to the ER due to left facial altered sensation slurred speech and right-sided facial droop. Patient reports that symptoms was noticed by her daughter and patient decided to come into the ER for evaluation. During patients hospital stay MRI of the brain showed acute ischemic lacunar infarct in the left thalamus. Patient was noted to have facial drop of right corner of mouth. Neurology was consulted with recommendations for patient to start a low-dose statin and to continue Plavix. Recommendations for patient to better control blood pressures as well. Patient will follow-up with primary care provider as an outpatient. - Time Spent with Patient Total time spent providing and/or coordinating discharge services: - Discharge Medications Prescriptions: Atorvastatin [Lipitor] 10 mg PO HS 30 Days #30 tablet Clopidogrel [Plavix] 75 mg PO DAILY 30 Days #30 tablet Home Medications: Calcium Carbonate [Calcium] 500 mg PO BID 12/28/16 [History] Cyanocobalamin (Vitamin B-12) [Vitamin B12] 1,000 mcg PO DAILY 12/28/16 [History] Cyclobenzaprine [Flexeril] 10 mg PO HS PRN 12/28/16 [History] Multivitamin [Flintstones] 2 each PO DAILY 12/28/16 [History] Cholecalciferol (D-3) [Vitamin D] 2,500 unit PO DAILY 12/29/16 [History] Atorvastatin [Lipitor] 10 mg PO HS 30 Days #30 tablet 05/30/18 [Rx] Clopidogrel [Plavix] 75 mg PO DAILY 30 Days #30 tablet 05/30/18 [Rx] Allergies/Adverse Reactions: Allergy/AdvReac Type Severity Reaction Status Date / Time Corticosteroids Allergy SWELLING Verified 05/30/18 11:16 (Glucocorticoids) promethazine [From Phenergan] AdvReac Intermediate Confusion Verified 05/30/18 11:16 aspirin AdvReac See Verified 05/30/18 11:16 Comments NSAIDS (Non-Steroidal AdvReac See Verified 05/30/18 11:16 Anti-Inflamma Comments Date of admission: 05/30/18 12:16 Primary care physician: Jaime Gipson DO Consults: 05/29/18 22:10 Consult to Physician [CONS] Routine Consulting Provider: Marielos Cohn I Reason for Consult: CVA Time Notified: 22:11 Call Completed: Yes - Constitutional Vitals: Temp Pulse Resp BP Pulse Ox 98.1 F 58 16 194/101 99 05/30/18 11:57 05/30/18 11:57 05/30/18 11:57 05/30/18 11:57 05/30/18 11:57 General appearance: Present: A&O X 3 Exam: Gen.: Nonacute distress, alert and oriented 3 Neuro: Patient with right-sided facial droop but no other focal neurological deficits - Patient Status Disposition: Home, Self-Care Condition: Good - Discharge Instructions Instructions: Atorvastatin (By mouth), Clopidogrel (By mouth), Ischemic Stroke (DC), Chronic Hypertension (DC), Hyperlipidemia (DC) Follow Up With: Jaime Gipson DO [Primary Care Provider] -
== END 2018-05-30 15:25 | disposition home or self-care (01) | DRG 66 ==
LOC: 3BNU 17:03 → EMEROOARM 17:03 → SUATTDRO 21:35 → 3BNU 22:18
PROVIDERS: ADMIT Internal Medicine Nephrology; ATTEND Hospitalist

== ENCOUNTER 2019-01-09 14:11 | Observation (INO) ==
--- NOTE | 2019-01-09 14:18 | Emergency Department Note ---
Disposition Clinical Impression: Cerebrovascular accident Qualifiers: CVA mechanism: unspecified Qualified Code(s): I63.9 - Cerebral infarction, unspecified Disposition: Admitted As Inpatient Condition: Good Referrals: NONE,PCP [Primary Care Provider] - Forms: ED Satisfaction Letter Time of Disposition: 16:19 Neuro HPI - General Chief Complaint: ED Neuro Symptoms/Deficit Stated Complaint: Neuro Time Seen by Provider: 01/09/19 14:14 Source: patient Mode of arrival: private vehicle Limitations: no limitations Nursing Notes Reviewed: Yes Vital Signs Reviewed: Yes - History of Present Illness HPI Narrative: 58-year-old female with history of CVA who presents the emergency department with complaints of right-sided facial droop, slurred speech occurring approximately 45 minutes prior to arrival at 1330. Patients states that his daughter came to him and stated that his was slurring her speech and had right-sided facial droop that they brought her to the emergency department. The patient has had previous CVA in May 2018 with left sided lacunar infarct. The patient states she sometimes gets a facial droop when she is tired but this is significantly worse and she has never had slurred speech. Otherwise denies any falls or injury. She does not take blood thinners. She notes headache but denies any fever, chills, chest pain, shortness of breath, abdomi nal pain, dysuria. - Related Data Home Medications: Home Medications Medication Instructions Recorded Confirmed Calcium Carbonate [Calcium] 500 mg PO BID 12/28/16 01/09/19 Cyanocobalamin (Vitamin B-12) 1,000 mcg PO DAILY 12/28/16 01/09/19 [Vitamin B12] Multivitamin [Flintstones] 2 each PO DAILY 12/28/16 01/09/19 Cholecalciferol (D-3) [Vitamin D] 2,000 unit PO DAILY 12/29/16 01/09/19 Aspirin 81 mg PO DAILY 01/09/19 01/09/19 Clopidogrel [Plavix] 75 mg PO DAILY 01/09/19 01/09/19 Cyclobenzaprine [Flexeril] 10 mg PO BID PRN 01/09/19 01/09/19 Lisinopril-HCTZ 10-12.5 [Prinzide 0.25 tab PO DAILY 01/09/19 01/09/19 10-12.5] Allergies/Adverse Reactions: Allergies Allergy/AdvReac Type Severity Reaction Status Date / Time Corticosteroids Allergy SWELLING Verified 01/09/19 14:16 (Glucocorticoids) promethazine [From Phenergan] AdvReac Intermediate Confusion Verified 01/09/19 14:16 aspirin AdvReac See Verified 05/30/18 11:16 Comments NSAIDS (Non-Steroidal AdvReac See Verified 01/09/19 14:16 Anti-Inflamma Comments Review of Systems: ROS per history of present illness, all other systems reviewed and negative or normal. All systems ED: reviewed and negative except as stated. Review of Systems: As Per HPI Past Medical History - Past Medical History Medical history: Reports: diabetes, hypertension, myocardial infarction Surgical history: Reports: cholecystectomy, other (Recent gastric bypass surgery and hiatal hernia repair) Psychiatric history: Reports: no psych history - Social History Smoking Status: Never smoker Smokeless Tobacco Status: No Alcohol use: Reports: none Drug use: Reports: none Physical Exam General: Conversant. No apparent distress. Follow commands. Appears stated age. Neck: No JVD. Trachea midline. Neck supple. Eyes: PERRL. No scleral icterus. HENT: Normocephalic and atraumatic. Moist mucus membranes. Cardiovascular: Regular rate and rhythm. Normal S1 and S2. No murmurs appreciated. Normal capillary refill. Extremities well perfused with 2+ distal pulses bilaterally. No edema. Pulmonary: Normal and equal breath sounds bilaterally, anteriorly and posteriorly. No wheezes, rales, or rhonchi. Not in respiratory distress. Speaks in full sentences. Abdomen: Soft, nondistended, and tontender. No bruits or masses. No guarding. Neuro: Alert and oriented to person, place, and time. CN II-XII tested and grossly intact. No hemineglect. Patient has mild slurred speech. Right-sided facial droop. Sensory: Sensation intact to light touch in all extremities. Motor: Normal tone and bulk. No pronator drift. 5/5 strength in LUE 5/5 strength in RUE 5/5 strength in LLE 5/5 strength in RLE Coordination: Finger to nose and heel to valadez testing intact bilaterally. Skin: No rashes noted on visualized skin. Musculoskeletal: No bony abnormalities visualized. Moves all extremities. Psych: Normal mood. Pleasant. Makes appropriate eye contact. Course - Reevaluation(s) Reevaluation #1: Spoke with [facility] neurologist who will assess the patient via telerobot Time: 14:28 Reevaluation #2: Patient assessed my neurologist via telerobot. Given improvement of symptoms do not recommend TPA. Per [facility], CT negative for acute bleed. Time: 14:32 Reevaluation #3: Called into room by nurse. Patient appears to have worsening of right sided facial droop, decreased sensation to right face and mild slurred speech. Will recontact [facility] neurologist. Time: 15:03 - Consultations Consultation #1: [facility] neurologist reassessed the patient and does note right sided facial droop. Does not recommend TPA at this time. Will obtain CT angio head and neck. Time: 15:10 Vital Signs Temperature 99.0 F 01/09/19 14:12 Pulse Rate 92 01/09/19 14:12 Respiratory Rate 16 01/09/19 14:12 Blood Pressure 181/89 01/09/19 14:12 O2 Sat by Pulse Oximetry 100 01/09/19 14:12 Temperature 99.0 F 01/09/19 14:12 Pulse Rate 72 01/09/19 15:48 Respiratory Rate 16 01/09/19 15:48 Blood Pressure 146/95 01/09/19 15:48 O2 Sat by Pulse Oximetry 100 01/09/19 14:26 Oxygen Delivery Oxygen Delivery Room Air Neuro Symptoms/Deficit - MDM Narrative Medical decision making narrative: 58-year-old female with history of CVA who presents the emergency department with complaints of right-sided facial droop, slurred speech and decreased sensation on the right. Symptoms occurred 45 minutes prior to arrival therefore the patient was initiated as a stroke alert. Vital signs are stable upon arrival. She has no other neurologic deficits. CT head shows no evidence of acute hemorrhage. The patient was evaluated by [facility] neurologist via telerobot and was deemed not a candidate for TPA given low NIH. Patient did have spontaneous recurrence of her symptoms here in the emergency department with right-sided facial droop which had worsened from prior along with slurred speech and decreased sensation on the right side of her face area [facility] neurologist reevaluated the patient and though there was slight increase in her symptoms they still did not recommend TPA given low NIH. CT angiogram of the head and neck were obtained which shows no evidence of acute occlusion. Laboratory evaluation shows no significant abnormalities with the exception of mild hypokalemia. Chest x-ray shows no focal consolidation. EKG shows no acute changes. Patient will be admitted for further stroke evaluation. Discussed case with on-call hospitalist Dr. Granda who agrees with plan for admission and accepts the patient to the inpatient service. Patient agrees with and understands course of treatment plan including plan for admission. All questions answered. - Medical Records Medical records reviewed: Yes I reviewed the patient's medical records. - Lab Data Lab results reviewed: Yes I reviewed the patient's lab results. Result diagrams: 01/09/19 14:15 01/09/19 14:15 Lab Results 01/09/19 01/09/19 01/09/19 Range/Units 14:15 14:15 14:15 WBC 8.8 (4.3-11.1) K/mcL RBC 4.86 (3.82-4.97) M/mcL Hgb 13.9 (11.5-15.4) g/dL Hct 41.5 (35.3-44.9) % MCV 85.4 (83.0-100.0) fL MCH 28.6 (28.0-33.3) pg MCHC 33.5 (31.6-35.5) g/dL RDW 13.0 (11.5-14.5) % Plt Count 282 (140-400) K/mcL MPV 9.2 L (9.4-12.4) fL PT 11.0 (9.4-12.1) Seconds INR 1.0 APTT 38.6 H (26.0-36.0) Seconds Sodium 140 (136-145) mEq/L Potassium 3.2 L (3.5-5.1) mEq/L Chloride 104 (98-107) mEq/L Carbon Dioxide 27 (23-29) mEq/L BUN 13 (6-20) mg/dL Creatinine 0.67 (0.60-1.20) mg/dL Est GFR ( Amer) > 60 (> 60) Est GFR (Non-Af Amer) > 60 (> 60) BUN/Creatinine Ratio 19 (6-26) Glucose 158 H (70-105) mg/dL Calculated Osmolality 293 (280-300) Calcium 9.1 (8.6-10.3) mg/dL Troponin I < 0.03 (< 0.04) ng/mL - Radiology Data Radiology results reviewed: Yes I reviewed the patient's radiology results. Head CT 01/09/19 14:14 IMPRESSION: No acute intracranial abnormality. Findings were discussed with Dr. Branham 2:30 p.m. 01/09/2019 D/ / Rg Shen MD / Rg Shen MD Interpreting Provider: Rg Shen MD Chest X-Ray 01/09/19 14:51 IMPRESSION: No acute cardiopulmonary findings. D/ / Julieta Batres MD / Julieta Batres MD Interpreting Provider: Julieta Batres MD Head CTA 01/09/19 15:17 IMPRESSION: No acute abnormality or flow-limiting stenosis of the major arteries of the head and neck. 1.6 cm left thyroid nodule, stable since CTA neck October 25, 2017, was previously evaluated by thyroid ultrasound January 02, 2018 to be a cyst. No follow-up is recommended D/ / Colby Roque MD / Colby Roque MD Interpreting Provider: Colby Roque MD Neck CTA 01/09/19 15:17 IMPRESSION: No acute abnormality or flow-limiting stenosis of the major arteries of the head and neck. 1.6 cm left thyroid nodule, stable since CTA neck October 25, 2017, was previously evaluated by thyroid ultrasound January 02, 2018 to be a cyst. No follow-up is recommended D/ / Colby Roque MD / Colby Roque MD Interpreting Provider: Colby Roque MD - EKG Data EKG attestation: Yes I reviewed and interpreted this EKG. EKG results narrative: Normal sinus rhythm rate of 70. Normal axis. No acute ischemic ST or T wave and the malleus. When compared with 05/29/18 there are no significant changes. NIH Stroke Scale - Level of Consciousness LOC: Alert - LOC Questions LOC Questions: Answers both correctly - LOC Commands LOC Commands: Performs both correctly - Best Gaze Best Gaze: Normal - Visual Visual: No visual loss - Facial Palsy Facial Palsy: Minor asymmetry on smiling, flattened nasolabial fold - Motor Arms Motor Arm-Left: No drift for 10 seconds Motor Arm-Right: No drift for 10 seconds - Motor Legs Motor Leg-Left: No drift for 5 seconds Motor Leg-Right: No drift for 5 seconds - Limb Ataxia Limb Ataxia: Absent of affected limb too weak to perform exam - Sensory Sensory: Normal - Best Language Best Language: No aphasia - Dysarthria Dysarthria: Mild, slurs some words - Extinction and Inattention Extinction and Inattention: Normal - NIHSS Total Score NIHSS Total Score: 2 TPA Checklist - Source Information Source: Patient - Eligibilty for IV tPA 1. LKW equal to or less than 4.5 hours be before treatment: Yes 2. Clinical diagnosis of ischemic stroke causing deficit: Yes 3. Age 18 years or older: Yes - Contraindications 4. Evidence of intracranial hemorrhage on pretreatment CT: No 5. Presentation suggests subarachnoid hem, even if CT normal: No 6. CT shows multilobar infarction: No 7. Known neoplasm, arteriovenous malformation, or aneurysm: No 8. Significant head trauma (w/ LOC) or CVA in last 3 months: No 9. BP elevated (systolic > 185 or diastolic > 110): No 10. Abnormal Blood Glucose (<50 or >400mg/dl): No 11. Active internal bleeding [PM.TPA15]: No 12. Known bleeding risk (including; not limited to 13-15): No 13. Heparin/argatroban/bivalirudin w/in 48hrs & PTT > normal: No 14. Platelet count less than 100,000/MM3: No 15. Current or recent use of anticoagualants (see protocol): No - Warnings/Precautions Considerations 16. Prior ischemic stroke within last 3 months: No 17. Recent history of intracranial hemorrhage: No 18. : No 19. Current/recent use Effient (7 days) or Brilinta (5 days): No 20. Arterial puncture at non compressible site or LP >7days: No 21. Major surgery or serious trauma in last 14 days: No 22. GI or urinary tract hemorrhage in last 21 days: No 23. NC involving left anterior myocardium in last 3 months: No 24. Suspected or known infective endocarditis/pericarditis: No - LKW: 3-4.5 hrs Add. Warnings/Precautions 21. oral anticoag other than warfarin regardles of last dose: No Patient/family understanding: The patient/family members have been counseled and understood the risk, benefit, and alternatives of treatment. S.B.Alfred - S.Javed.Alfred Situation: Demographics, MOA Background: Presenting Complaint, Relevant PMH, Meds, & Allergies Assessment: Vital Signs, Course and respsone to treatment, Exam Concerns, Patient/Family Expectation, Pertinant Lab Results, Outstanding Labs Recommendation: Recommendation based on pending studies, treatments, or consults SEmily Report Given to: Kalee Brewster Repor Time: 16:29 Attestation Statement - Attestation Attestation: I have seen this patient with the resident physician, I have personally evaluated this patient. I had reviewed the chart and document dictation by the resident physician and aM in agreement with the information documented by the resident physician. Please see documentation by the resident physician for complete chart including past medical history, family medical history, review of systems, current history and physical and laboratory and imaging studies. I was present for all procedures, provided direct supervision for all procedures, was present for the entirety of all procedures and provided direct guidance during the procedures. Please see documentation by the resident physician for any procedures performed. I have reviewed all interpretations of EKGs, and reviewed all EKGs performed on patient's as well. I have also reviewed reports of imaging as provided by radiology. Patient presented emergency department with chief complaint of strokelike symptoms. Patient reports that she had a stroke in May of last year, she had complete resolution of her symptoms after it, but reports that occasionally when she is tired she will have some right-sided facial tingling numbness sensation states that however today about 30 minutes prior to arrival she had sudden onset of worse right sided facial numbness and facial droop and some speech difficulty. She states that this is very similar to when she had her pr ior stroke. She states that she is a little bit tired but this is out of the ordinary for her. She denies any headache neck pain chest pain shortness of breath dizziness weakness fevers chills cough sputum production she denies any gait disturbance denies any numbness or weakness in her extremities at this time. Denies any recent fevers chills cough sputum production abdominal pain diarrhea black or bloody stool urinary changes or any other concerns. No recent trauma. She is not anticoagulated. Upon arrival, she does have a right-sided facial droop, which spares the forehead, she is able to overcome this to some degree but not completely, she has a very slight amount of slurring to her speech which sounds more full than it does true slurring. Extraocular movements are intact. Visual fagan are intact. Pupils are normal. Palate is normal with normal elevation. Normal object recognition. No pass point no pronator drift. No arm drift bilaterally no leg drift bilaterally intact sensation and motor of all 4 extremities, there is intact sensation of the face she denies any difference in sensation on both sides overall nerve distributions of the facial nerve. Gait was normal. Full nontender range of motion of the neck without meningeal sign. Lungs are clear. Heart is regular. Abdomen soft and nontender. Skin is warm dry without rash or petechiae. Secondary to symptoms starting within 30 minutes, stroke alert was initiated. Patient was evaluated by the stroke neurologist, via telecommunications, did not meet any TPA criteria per stroke neurology. Head CT showed no acute abnormality. Basic laboratory studies were ordered. The stroke neurology recommended admission to this facility. Patient admitted for further evaluation and management, I did review her old records from May she did have a thalamic stroke at that time Patient will be admitted to the hospital for further evaluation and management. Patient will be given aspirin. Just prior to admission, patient had acute worsening of her symptoms, with worsening right-sided facial droop return of prominent slurred speech and right- sided facial numbness but had no other developing neurologic symptoms, stroke neurology was immediately contacted again for repeat evaluation, patient again evaluated by stroke neurology, they are agreement that her symptoms did acutely worsen, but still remains with an NIH stroke scale that is well below the range for TPA, do not feel that there is any indication for further emergency department management, can consider a CT angiogram, but still does not meet criteria for thrombectomy, or transfer to stroke center. Patient will be admitted to the hospital for further evaluation and management Total critical care times run by myself excluding any procedures performed in evaluation and management of acute strokelike symptoms, with initial improvement and then recurrence was 40 minutes.
[2019-01-09 14:24] LABS: Hematocrit 41.5 % (35.3-44.9); Hemoglobin 13.9 g/dL (11.5-15.4); Mean Corpuscular HGB Conc 33.5 g/dL (31.6-35.5); Mean Corpuscular Hemoglobin 28.6 pg (28.0-33.3); Mean Corpuscular Volume 85.4 fL (83.0-100.0); Mean Platelet Volume 9.2 fL (9.4-12.4); Platelet Count 282 K/mcL (140-400); Red Blood Count 4.86 M/mcL (3.82-4.97); White Blood Count 8.8 K/mcL (4.3-11.1)
[2019-01-09 14:34] LABS: Activated Partial Thrombo Time 38.6 Seconds (26.0-36.0)
[2019-01-09 15:00] LABS: Troponin I < 0.03 ng/mL (< 0.04)
[2019-01-09] MEDS ORDERED: Aspirin 81 MG TAB.CHEW PO STA (15:00)
[2019-01-09 15:10] LABS: BUN/Creatinine Ratio 19 (6-26); Blood Urea Nitrogen 13 mg/dL (6-20); Calcium 9.1 mg/dL (8.6-10.3); Carbon Dioxide 27 mEq/L (23-29); Chloride 104 mEq/L (98-107); Glucose 158 mg/dL (70-105); Osmolality,Calculated 293 (280-300); Potassium 3.2 mEq/L (3.5-5.1); Sodium 140 mEq/L (136-145); eGFR For African Americans > 60 (> 60); eGFR For Non-African Americans > 60 (> 60)
[2019-01-09] MEDS ORDERED: Isovue-370 500 ML BOTTLE IVP ONE (15:17)
[2019-01-09 16:20] LABS: Bacteria,Urine None Seen per hpf (None-Few); Bilirubin,Urine Negative (Negative); Blood,Urine Negative (Negative); Clarity,Urine Clear (Clear); Color,Urine Yellow (Yellow); Glucose,Urine (UA) Normal (Normal); Hyaline Casts,Urine None Seen per lpf (None-Few); Ketones,Urine Negative (Negative); Leukocyte Esterase,Urine Moderate (Negative); Nitrite,Urine Negative (Negative); PH,Urine 5.5 pH Units (5.0-8.0); Protein,Urine Negative (Neg-Trace); Specific Gravity,Urine 1.013 (1.010-1.025); Squamous Epithelial Cell,Urine Moderate per lpf (None-Few); Urobilinogen,Urine Normal (Normal)
[2019-01-09] MEDS ORDERED: Naloxone 0.4 MG/ML INJ IVP PRN (16:35)
--- NOTE | 2019-01-09 17:18 | Internal Med History&Physical ---
Date of Encounter: 01/09/19 Time of Encounter: 16:00 Internal Medicine - H&P: HPI Chief complaint: Slurred speech, right sided facial droop today History of present illness: Ms. Lynch is a 58 year old female with pmh of CVA, hypertension with recent stroke in may 2018 presenting today with complaints of right sided facial droop and slurred speech starting around 12. 30pm. Patient says she woke up feeling well and was able to go about her daily activities including shopping, and was in the kitchen cutting up vegetables when she began to experience fatigue followed by a numbness in the right side of her face, a facial droop and slurred speech. She says she called out to her daughter who thought she sounded garbled and made her come to the hospital. She denies any other acute symptoms In the ER, an initial CT head was negative, but her symptoms returned and [facility] was contacted who recommended no TPA but wanted her observed. CTA head was done and was negative. She got aspirin and she is being admitted for further management Past Med Surg Social Fam HX - Past Medical History Medical history: CVA, diabetes, hypertension, myocardial infarction Psychiatric history: no psych history - Past Surgical History Surgical History: cholecystectomy, other (Recent gastric bypass surgery and hiatal hernia repair) Additional surgical history: GASTRIC SLEEVE. UTERINE ABLASION. D/C. back surgery x2 - Social History Smoking Status: Never smoker Smokeless Tobacco Status: No Alcohol use: none Drug use: none - Family History Mother Living Status: Still Living Hx Family Cardiac Disorders: Yes (quad bypass, htn) Hx Family Neuromuscular Disorders: Yes (cva) Father Living Status: Hx Family Cardiac Disorders: Yes Brother Living Status: Still Living Internal Medicine - H&P: Meds Calcium Carbonate [Calcium] 500 mg PO BID 12/28/16 [History] Cyanocobalamin (Vitamin B-12) [Vitamin B12] 1,000 mcg PO DAILY 12/28/16 [History] Multivitamin [Flintstones] 2 each PO DAILY 12/28/16 [History] Cholecalciferol (D-3) [Vitamin D] 2,000 unit PO DAILY 12/29/16 [History] Aspirin 81 mg PO DAILY 01/09/19 [History] Clopidogrel [Plavix] 75 mg PO DAILY 01/09/19 [History] Cyclobenzaprine [Flexeril] 10 mg PO BID PRN 01/09/19 [History] Lisinopril-HCTZ 10-12.5 [Prinzide 10-12.5] 0.25 tab PO DAILY 01/09/19 [History] Allergy/AdvReac Type Severity Reaction Status Date / Time Corticosteroids Allergy SWELLING Verified 01/09/19 14:16 (Glucocorticoids) promethazine [From Phenergan] AdvReac Intermediate Confusion Verified 01/09/19 1 4:16 aspirin AdvReac See Verified 05/30/18 11:16 Comments NSAIDS (Non-Steroidal AdvReac See Verified 01/09/19 14:16 Anti-Inflamma Comments All Systems PM: A 10-system review of systems was performed and is negative for pertinent findings except as documented above in the HPI. - Constitutional Constitutional: no chills, no fever(s), no night sweats - EENT Eyes: no change in vision, no discharge, no pain, no photophobia Ears: no ear discharge, no ear pain, no tinnitus Nose, mouth and throat: no dysphagia, no nasal discharge, no neck pain, no sore throat - Cardiovascular Cardiovascular ROS IM: no chest pain, no diaphoresis, no dyspnea, no lightheadedness, no palpitations, no syncope - Respiratory Respiratory: no cough, no dyspnea, no wheezing, no excessive phlegm production - Gastrointestinal Gastrointestinal: no abdominal pain, no diarrhea, no hematemesis, no hematochezia, no melena, no nausea, no vomiting - Genitourinary Genitourinary: no change in urinary stream, no dysuria, no flank pain, no hematuria - Musculoskeletal Musculoskeletal ROS IM: no numbness, no tingling - Integumentary Integumentary IM: no rash, no unusual bruising - Neurological Neurological ROS: abnormal speech, no confusion, no convulsions, no focal weakness, no numbness, no tingling, no tremor(s) - Hematologic/Lymphatic Hematologic/Lymphatic: no easy bruising - Constitutional Vitals: Temp Pulse Resp BP Pulse Ox 99.0 F 72 16 151/91 100 01/09/19 14:12 01/09/19 15:48 01/09/19 16:42 01/09/19 16:42 01/09/19 14:26 Exam: NAD 4+/5 strength in right upper and lower extremities - Head Head exam: Present: atraumatic, normocephalic - Eye Eye exam: Present: PERRL, conjuntiva pink, sclera anicteric Pupils: Present: PERRL - Neck Neck exam general surgery: Present: supple, trachea midline. Absent: lymphadenopathy - Respiratory Respiratory exam: Present: CTAB. Absent: accessory muscle use, rales, rhonchi, wheezes - Cardiovascular Cardiovascular exam: Present: RRR, +S1, +S2. Absent: diastolic murmur, gallop, rubs, systolic murmur - GI/Abdominal GI/Abdominal exam: Present: normal bowel sounds, soft, no peritoneal signs. Absent: distended, tenderness - Extremities Exam Extremities exam: Present: warm, radial pulses palpable and symmetrical. Absent: calf tenderness, cyanotic, pedal edema - Neurological Exam Neurological exam: Present: CN II-XII intact, oriented X3, no focal deficits. Absent: pronater drift, facial droop, speech deficit - Skin Skin exam: Present: dry, intact Internal Med - H&P Results - Labs CBC & Chem 7: 01/09/19 14:15 01/09/19 14:15 Labs: Short CBC 01/09/19 Range/Units 14:15 WBC 8.8 (4.3-11.1) K/mcL Hgb 13.9 (11.5-15.4) g/dL Hct 41.5 (35.3-44.9) % Plt Count 282 (140-400) K/mcL BMP 01/09/19 14:15 Sodium 140 Potassium 3.2 L Chloride 104 Carbon Dioxide 27 BUN 13 Creatinine 0.67 Glucose 158 H Calcium 9.1 Cardiac Enzymes 01/09/19 Range/Units 14:15 Troponin I < 0.03 (< 0.04) ng/mL Urine 01/09/19 Range/Units 15:51 Urine Color Yellow (Yellow) Urine Clarity Clear (Clear) Urine pH 5.5 (5.0-8.0) pH Units Ur Specific [place] 1.013 (1.010-1.025) Urine Protein Negative (Neg-Trace) mg/dL Urine Glucose (UA) Normal (Normal) mg/dL - Impressions ITS Impressions Head CT 01/09/19 14:14 IMPRESSION: No acute intracranial abnormality. Findings were discussed with Dr. Plager 2:30 p.m. 01/09/2019 D/ / Rg Shen MD / Rg Shen MD Interpreting Provider: Rg Shen MD Chest X-Ray 01/09/19 14:51 IMPRESSION: No acute cardiopulmonary findings. D/ / Julieta Batres MD / Julieta Batres MD Interpreting Provider: Julieta Batres MD Head CTA 01/09/19 15:17 IMPRESSION: No acute abnormality or flow-limiting stenosis of the major arteries of the head and neck. 1.6 cm left thyroid nodule, stable since CTA neck October 25, 2017, was previously evaluated by thyroid ultrasound January 02, 2018 to be a cyst. No follow-up is recommended D/ / Colby Roque MD / Colby Roque MD Interpreting Provider: Colby Roque MD Neck CTA 01/09/19 15:17 IMPRESSION: No acute abnormality or flow-limiting stenosis of the major arteries of the head and neck. 1.6 cm left thyroid nodule, stable since CTA neck October 25, 2017, was previously evaluated by thyroid ultrasound January 02, 2018 to be a cyst. No follow-up is recommended D/ / Colby Roque MD / Colby Roque MD Interpreting Provider: Colby Roque MD - Assessment and Plan (1) Cerebrovascular accident Current Visit: Yes Status: Acute Assessment and plan: Pt comes in with slurred speech, facial droop that ocurred twice in the last 6 hrs and has sicne resolved CT head and CTA head negative. Seen by [facility] neurology and TPA not recommended Obtain MRI head, echo, lipid panel. Continue on aspirin and plavix. Neuro consult in am Qualifiers: CVA mechanism: unspecified Qualified Code(s): I63.9 - Cerebral infarction, unspecified (2) Essential hypertension Current Visit: Yes Status: Chronic Assessment and plan: Continue lisnopril-HCTZ (3) Hypokalemia Current Visit: Yes Status: Acute Assessment and plan: Replaced (4) DVT prophylaxis Current Visit: Yes Status: Acute Assessment and plan: Heparin sc - Time Spent With Patient Total time spent is greater than 50% in coordination of care (as documented) at patient's floor/unit and/or counseling patient:
[2019-01-09] MEDS: Potassium Chloride Elixir 20 MEQ/15 ML UDC PO SCH ×2 (17:38→20:56)
[2019-01-09] MEDS: *HR* Heparin 5,000 UNIT/ML VIAL SQ SCH (18:25)
[2019-01-10 05:42] LABS: Basophils # 0.1 K/mcL (0.0-0.2); Eosinophils # 0.2 K/mcL (0.0-0.6); Eosinophils % 2.8 %; Hematocrit 39.3 % (35.3-44.9); Immature Granulocytes % 0.3 % (0-4); Lymphocytes # 2.2 K/mcL (0.6-4.6); Lymphocytes % 36.7 %; Mean Corpuscular HGB Conc 33.1 g/dL (31.6-35.5); Mean Corpuscular Hemoglobin 28.3 pg (28.0-33.3); Mean Corpuscular Volume 85.6 fL (83.0-100.0); Mean Platelet Volume 9.5 fL (9.4-12.4); Monocytes # 0.5 K/mcL (0.0-1.3); Monocytes % 8.2 %; Neutrophils # 3.1 K/mcL (1.6-8.9); Platelet Count 225 K/mcL (140-400); Red Blood Count 4.59 M/mcL (3.82-4.97); Red Cell Distribution Width 13.1 % (11.5-14.5)
[2019-01-10 06:00] LABS: Chol/HDL Ratio 4.5 (0-4.9)
[2019-01-10] MEDS: *HR* Heparin 5,000 UNIT/ML VIAL SQ SCH (06:07)
[2019-01-10 06:39] LABS: BUN/Creatinine Ratio 24 (6-26); Blood Urea Nitrogen 14 mg/dL (6-20); Calcium 9.6 mg/dL (8.6-10.3); Carbon Dioxide 29 mEq/L (23-29); Chloride 103 mEq/L (98-107); Glucose 97 mg/dL (70-105); Magnesium 2.3 mg/dL (1.6-2.6); Osmolality,Calculated 290 (280-300); Phosphorous 4.3 mg/dL (2.7-4.5); Potassium 4.2 mEq/L (3.5-5.1); Sodium 140 mEq/L (136-145); eGFR For African Americans > 60 (> 60); eGFR For Non-African Americans > 60 (> 60)
--- NOTE | 2019-01-10 08:39 | Internal Med Progress Note ---
Hospitalist Progress Note - Encounter Date of Encounter: 01/10/19 Time of Encounter: 08:00 - Exam Vitals: Temp Pulse Resp BP Pulse Ox 98.1 F 72 16 129/75 99 01/10/19 07:02 01/10/19 07:02 01/10/19 07:02 01/10/19 07:02 01/10/19 07:02 Exam: NAD 4+/5 strength in right upper and lower extremities - Assessment and Plan (1) Cerebrovascular accident Current Visit: Yes Status: Acute Assessment and Plan: Pt comes in with slurred speech, facial droop that ocurred twice in the last 6 hrs and has sicne resolved CT head and CTA head negative. Seen by [facility] neurology and TPA not recommended Obtain MRI head, echo, lipid panel. Continue on aspirin and plavix. Neuro consult in am (2) Essential hypertension Current Visit: Yes Status: Chronic Assessment and Plan: Continue lisnopril-HCTZ (3) Hypokalemia Current Visit: Yes Status: Acute Assessment and Plan: Replaced (4) DVT prophylaxis Current Visit: Yes Status: Acute Assessment and Plan: Heparin sc - Time Spent with Patient Total time spent is greater than 50% in coordination of care (as documented) at patient's floor/unit and/or counseling patient: Internal Medicine: Result - Labs CBC & Chem 7: 01/10/19 05:20 01/10/19 05:20 Labs: Short CBC 01/09/19 01/10/19 Range/Units 14:15 05:20 WBC 8.8 6.0 (4.3-11.1) K/mcL Hgb 13.9 13.0 (11.5-15.4) g/dL Hct 41.5 39.3 (35.3-44.9) % Plt Count 282 225 (140-400) K/mcL Neutrophils # 3.1 (1.6-8.9) K/mcL BMP 01/09/19 01/10/19 14:15 05:20 Sodium 140 140 Potassium 3.2 L 4.2 D Chloride 104 103 Carbon Dioxide 27 29 BUN 13 14 Creatinine 0.67 0.58 L Glucose 158 H 97 Calcium 9.1 9.6 Cardiac Enzymes 01/09/19 Range/Units 14:15 Troponin I < 0.03 (< 0.04) ng/mL Urine 08/04/19 Range/Units 15:51 Urine Color Yellow (Yellow) Urine Clarity Clear (Clear) Urine pH 5.5 (5.0-8.0) pH Units Ur Specific [place] 1.013 (1.010-1.025) Urine Protein Negative (Neg-Trace) mg/dL Urine Glucose (UA) Normal (Normal) mg/dL - ABG Interpretation ABG results: PT/INR, D-dimer PT 11.0 Seconds (9.4-12.1) 01/09/19 14:15 - Impressions Impressions Head CT 01/09/19 14:14 IMPRESSION: No acute intracranial abnormality. Findings were discussed with Dr. Branham 2:30 p.m. 01/09/2019 D/ / Rg Shen MD / Rg Shen MD Interpreting Provider: Rg Shen MD Chest X-Ray 01/09/19 14:51 IMPRESSION: No acute cardiopulmonary findings. D/ / Julieta Batres MD / Julieta Batres MD Interpreting Provider: Julieta Batres MD Head CTA 01/09/19 15:17 IMPRESSION: No acute abnormality or flow-limiting stenosis of the major arteries of the head and neck. 1.6 cm left thyroid nodule, stable since CTA neck October 25, 2017, was previously evaluated by thyroid ultrasound January 02, 2018 to be a cyst. No follow-up is recommended D/ / Colby Roque MD / Colby Roque MD Interpreting Provider: Colby Roque MD Neck CTA 01/09/19 15:17 IMPRESSION: No acute abnormality or flow-limiting stenosis of the major arteries of the head and neck. 1.6 cm left thyroid nodule, stable since CTA neck October 25, 2017, was previously evaluated by thyroid ultrasound January 02, 2018 to be a cyst. No follow-up is recommended D/ / Colby Roque MD / Colby Roque MD Interpreting Provider: Colby Roque MD Consult Discharge Plan - Plan Referrals: NONE,PCP [Primary Care Provider] - (1) Cerebrovascular accident Qualifiers: CVA mechanism: unspecified Qualified Code(s): I63.9 - Cerebral infarction, unspecified
[2019-01-10] MEDS ORDERED: Aspirin 81 MG TAB.CHEW PO SCH (09:00)
[2019-01-10] MEDS ORDERED: Cholecalciferol (D-3) 1,000 UNIT (25MCG) TABLET PO SCH (09:00)
[2019-01-10] MEDS ORDERED: Multivitamin Liquid 15 ML UDC PO SCH (09:00)
[2019-01-10] MEDS ORDERED: Cyanocobalamin (B-12) 1,000 MCG TABLET PO SCH (09:00)
--- NOTE | 2019-01-10 12:00 | Neurology - Consult Note ---
Date of Encounter: 01/10/19 Time of Encounter: 09:40 Assessment and Plan (1) TIA (transient ischemic attack) Current Visit: Yes Status: Acute Patients report of brief episodes involving right sided facial droop and slurred speech are concerning for TIA vs CVA. CT and CTA were reviewed and were negative for acute infarct. Will order MRI to assess further. ECHO and Carotid Duplex to be ordered as part of stroke work up. Continue antiplatelet and anticoagulation. History of Present Illness Chief complaint: "Was having facial drooping" HPI: Ms. Lynch is a 58 year old female with PMH of CVA (05/2018) and HTN who presented to ED with right sided facial droop and slurred speech. She reports it started at 12:30pm yesterday and cleared up shortly afterward. She admits to several similar episodes occuring since her CVA in May. She states that these episodes always include facial droop and slurred speech and occur when she is tired. At this time she is denying weakness, numbness/tingling, instability, difficulty swallowing, blurry/double vision, nausea or dizziness. She admits to her blood pressures running high at home for the past few days in the 140's/90's. 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 ), diabetes, hypertension, myocardial infarction Psychiatric history: no psych history - Past Surgical History Surgical History: cholecystectomy, other (Recent gastric bypass surgery and hiatal hernia repair) Additional surgical history: GASTRIC SLEEVE. UTERINE ABLASION. D/C. back surgery x2 - Social History Smoking Status: Never smoker Smokeless Tobacco Status: No Alcohol use: none Drug use: none - Family History Mother Living Status: Still Living Hx Family Cardiac Disorders: Yes (quad bypass, htn, stroke) Hx Family Neuromuscular Disorders: Yes (cva) Father Living Status: Age at : 79 Cause of : bowel surgery complications Hx Family Cardiac Disorders: Yes Brother Living Status: Still Living Medications and Allergies Calcium Carbonate [Calcium] 500 mg PO BID 12/28/16 [History] Cyanocobalamin (Vitamin B-12) [Vitamin B12] 1,000 mcg PO DAILY 12/28/16 [History] Multivitamin [Flintstones] 2 each PO DAILY 12/28/16 [History] Cholecalciferol (D-3) [Vitamin D] 2,000 unit PO DAILY 12/29/16 [History] Aspirin 81 mg PO DAILY 01/09/19 [History] Clopidogrel [Plavix] 75 mg PO DAILY 01/09/19 [History] Cyclobenzaprine [Flexeril] 10 mg PO BID PRN 01/09/19 [History] Lisinopril-HCTZ 10-12.5 [Prinzide 10-12.5] 0.25 tab PO DAILY 01/09/19 [History] Tramadol HCl [Ultram] 50 mg PO BID PRN 01/09/19 [History] Allergy/AdvReac Type Severity Reaction Status Date / Time Corticosteroids Allergy SWELLING Verified 01/09/19 14:16 (Glucocorticoids) promethazine [From Phenergan] AdvReac Intermediate Confusion Verified 01/09/19 14:16 NSAIDS (Non-Steroidal AdvReac See Verified 01/09/19 18:05 Anti-Inflamma Comments All Systems: The remainder of the systems were reviewed and are negative - Constitutional Constitutional ROS IM: no chills, no fatigue, no fever(s) - Nose, Mouth, Throat Nose, mouth and throat: no abnormal hearing, no change in voice, no disequilibrium, no dizziness, no dysphagia - Cardiovascular Cardiovascular ROS IM: no chest pain, no chest pain with activity, no edema - Respiratory Respiratory IM: no cough, no dyspnea, no stridor - Gastrointestinal Gastrointestinal: no abdominal pain, no bloating, no diarrhea - Musculoskeletal Musculoskeletal ROS IM: no abnormal gait, no arthralgias, no atrophy, no muscle cramps, no muscle weakness, no myalgias - Integumentary Integumentary IM: no acne, no change in hair, no change in pigmentation, no sores - Neurological Neurological ROS: headache(s) (Admits to headaches occuring "off and on"), no abnormal gait, no abnormal hearing, no abnormal movements, no abnormal speech, no behavioral changes, no confusion, no disequilibrium, no focal weakness, no lack of coordination, no loss of vision, no radicular pain, no syncope, no tingling, no tremor(s) - Psychiatric Psychiatric general PM: no abnormal sleep pattern, no anhedonia, no anxiety, no change in appetite, no depression, no difficulty concentrating Physical Examination - Vital Signs Vital Signs: Initial Vital Signs Temp Pulse Resp BP Pulse Ox 99.0 F 92 16 181/89 100 01/09/19 14:12 01/09/19 14:12 01/09/19 14:12 01/09/19 14:12 01/09/19 14:12 - Constitutional General appearance: comfortable - Neurologic Sensorimotor examination: intact Motor examination - right side: 5/5: deltoids, biceps, triceps, machinery mover, hip flexors, tibialis Anterior Motor examination - left side: 5/5: deltoids, biceps, triceps, hip flexors, machinery mover, tibialis Anterior Detailed sensory examination: intact Reflex and gait examination: normal gait Reflexes: Biceps: 2+, Triceps: 2+, Brachioradialis: 2+, Patella: 2+, Achilles: 2+ Mental Status Examination: awake, alert, oriented to person, oriented to place, oriented to time, follows commands appropriately, answers questions appropriately, no agnosia, no aphasia, no aproxia Mental Status Examination: Patient seen at bedside. She appeared comfortable and was calm/cooperative t hroughout the interview. Cranial nerve examination: PERRL, EOMI, visual fagan intact, corneal reflexes brisk symmetrically, sensory to face intact, no facial asymmetry is present, no dysarthria, hearing is intact symmetrically, soft palate elevates bilaterally upon phonation, flexes SCM and trapezius muscles symmetrically with full power, tongue protrudes midline, no atrophy or facial fasiculations present Cerebellar examination: no dysmetria, performs finger to nose and heel to valadez symmetrically without ataxia, no gait ataxia, no truncal ataxia, no difficulty with rapid alternating movements Results - Laboratory Findings CBC and BMP: 01/10/19 05:20 01/10/19 05:20 Abnormal lab findings: Abnormal lab results MPV 9.2 fL (9.4-12.4) L 01/09/19 14:15 APTT 38.6 Seconds (26.0-36.0) H 01/09/19 14:15 Potassium 3.2 mEq/L (3.5-5.1) L 01/09/19 14:15 Creatinine 0.58 mg/dL (0.60-1.20) L 01/10/19 05:20 Glucose 158 mg/dL (70-105) H 01/09/19 14:15 POC Glucose 122 mg/dL (70-99) H 01/09/19 15:03 Cholesterol 258 mg/dL (< 200) H 01/10/19 05:20 LDL Cholesterol, Calc 182 mg/dL (0-99) H 01/10/19 05:20 Ur Leukocyte Esterase Moderate (Negative) H 01/09/19 15:51 Urine Microscopic RBC 3-5 per hpf (0-3) H 01/09/19 15:51 Urine Microscopic WBC 5-15 per hpf (0-3) H 01/09/19 15:51 Ur Squamous Epith Cells Moderate per lpf (None-Few) H 01/09/19 15:51 Ur Culture Indicated? YES (NO) A 01/09/19 15:51 Consult Discharge Plan - Plan Referrals: NONE,PCP [Primary Care Provider] -
--- NOTE | 2019-01-10 14:13 | Electrocardiograph Report ---
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
--- NOTE | 2019-01-10 16:39 | Discharge Summary ---
Date of Encounter: 01/10/19 Time of Encounter: 09:00 - Discharge Diagnosis (1) Cerebrovascular accident Priority: Primary Status: Acute Assessment and Plan: 58 year old female with pmh of CVA, hypertension with recent stroke in may 2018 presenting today with complaints of right sided facial droop and slurred speech starting around 12. 30pm. Patient says she woke up feeling well and was able to go about her daily activities including shopping, and was in the kitchen cutting up vegetables when she began to experience fatigue followed by a numbness in the right side of her face, a facial droop and slurred speech. She says she called out to her daughter who thought she sounded garbled and made her come to the hospital She came in with slurred speech, facial droop that occurred twice in the last 6 hrs and has since resolved. CT head and CTA head negative. Seen by [facility] neurology and TPA not recommended. MRI head, echo and carotid ultrasound showed no aucte abnormalities. She was discharged home in a stable condition Qualifiers: CVA mechanism: unspecified Qualified Code(s): I63.9 - Cerebral infarction, unspecified (2) Essential hypertension Priority: Primary Status: Chronic (3) Hypokalemia Priority: Primary Status: Acute (4) DVT prophylaxis Priority: Primary Status: Acute Hospital course: Ms. Lynch is a 58 year old female - Time Spent with Patient Total time spent providing and/or coordinating discharge services: - Discharge Medications Prescriptions: No Action Multivitamin [Flintstones] 2 each PO DAILY Calcium Carbonate [Calcium] 500 mg PO BID Cyanocobalamin (Vitamin B-12) [Vitamin B12] 1,000 mcg PO DAILY Cholecalciferol (D-3) [Vitamin D] 2,000 unit PO DAILY Aspirin 81 mg PO DAILY Clopidogrel [Plavix] 75 mg PO DAILY Lisinopril-HCTZ 10-12.5 [Prinzide 10-12.5] 0.25 tab PO DAILY Cyclobenzaprine [Flexeril] 10 mg PO BID PRN PRN Reason: MUSCLE SPASM/CRAMPS Tramadol HCl [Ultram] 50 mg PO BID PRN PRN Reason: Pain Home Medications: Calcium Carbonate [Calcium] 500 mg PO BID 12/28/16 [History] Cyanocobalamin (Vitamin B-12) [Vitamin B12] 1,000 mcg PO DAILY 12/28/16 [History] Multivitamin [Flintstones] 2 each PO DAILY 12/28/16 [History] Cholecalciferol (D-3) [Vitamin D] 2,000 unit PO DAILY 12/29/16 [History] Aspirin 81 mg PO DAILY 01/09/19 [History] Clopidogrel [Plavix] 75 mg PO DAILY 01/09/19 [History] Cyclobenzaprine [Flexeril] 10 mg PO BID PRN 01/09/19 [History] Lisinopril-HCTZ 10-12.5 [Prinzide 10-12.5] 0.25 tab PO DAILY 01/09/19 [History] Tramadol HCl [Ultram] 50 mg PO BID PRN 01/09/19 [History] Allergies/Adverse Reactions: Allergy/AdvReac Type Severity Reaction Status Date / Time Corticosteroids Allergy SWELLING Verified 01/09/19 14:16 (Glucocorticoids) promethazine [From Phenergan] AdvReac Intermediate Confusion Verified 01/09/19 14:16 NSAIDS (Non-Steroidal AdvReac See Verified 01/09/19 18:05 Anti-Inflamma Comments Date of admission: 01/09/19 16:26 Primary care physician: PCP NONE Consults: 01/09/19 16:41 Consult to Neurology [CONS] Routine Consulting Provider: Neurology [facility] Reason for Consult: tia r/o stroke Call Completed: No - Constitutional Vitals: Temp Pulse Resp BP Pulse Ox 97.9 F 69 16 129/81 97 01/10/19 14:57 01/10/19 14:57 01/10/19 14:57 01/10/19 14:57 01/10/19 14:57 Exam: NAD - Head Head exam: Present: atraumatic, normocephalic - Eye Eye exam: Present: PERRL, conjuntiva pink, sclera anicteric Pupils: Present: PERRL - Neck Neck exam general surgery: Present: supple, trachea midline. Absent: lymphadenopathy - Respiratory Respiratory exam: Present: CTAB. Absent: accessory muscle use, rales, rhonchi, wheezes - Cardiovascular Cardiovascular exam: Present: RRR, +S1, +S2. Absent: diastolic murmur, gallop, rubs, systolic murmur - GI/Abdominal GI/Abdominal exam: Present: normal bowel sounds, soft, no peritoneal signs. Absent: distended, tenderness - Extremities Exam Extremities exam: Present: warm, radial pulses palpable and symmetrical. Absent: calf tenderness, cyanotic, pedal edema - Neurological Exam Neurological exam: Present: CN II-XII intact, oriented X3, no focal deficits. Absent: pronater drift, facial droop, speech deficit - Skin Skin exam: Present: dry, intact - Patient Status Disposition: Home, Self-Care Condition: Good - Discharge Instructions Follow Up With: NONE,PCP [Primary Care Provider] -
[2019-01-10 16:45] VITALS: BP 156/81
== END 2019-01-10 17:44 | disposition home or self-care (01) ==
LOC: 3BNU 14:11 → EMEROOARM 14:11 → 3BNU 17:01
PROVIDERS: ADMIT Student in an Organized Health Care Education/Training Program; ATTEND Student in an Organized Health Care Education/Training Program

== ENCOUNTER 2021-07-17 15:19 | Observation (INO) ==
[2021-07-17] MEDS ORDERED: Isovue-370 500 ML BOTTLE IVP ONE (15:30)
[2021-07-17 16:49] LABS: Hematocrit 42.5 % (35.3-44.9); Hemoglobin 14.1 g/dL (11.5-15.4); Mean Corpuscular HGB Conc 33.2 g/dL (31.6-35.5); Mean Corpuscular Volume 87.3 fL (83.0-100.0); Mean Platelet Volume 10.2 fL (9.4-12.4); Platelet Count 323 K/mcL (140-400); Red Blood Count 4.87 M/mcL (3.82-4.97); Red Cell Distribution Width 13.3 % (11.5-14.5); White Blood Count 9.9 K/mcL (4.3-11.1)
[2021-07-17] MEDS ORDERED: Perflutren Lipid Microsphere 1.3 ML in 0.9 % Sodium Chloride 8.7 ML IVP PRN (17:08)
[2021-07-17 17:13] LABS: BUN/Creatinine Ratio 24 (6-26); Blood Urea Nitrogen 19 mg/dL (8-23); Carbon Dioxide 27 mEq/L (23-29); Chloride 99 mEq/L (98-107); Glucose 114 mg/dL (70-105); Osmolality,Calculated 289 (280-300); Potassium 3.5 mEq/L (3.5-5.1); Sodium 138 mEq/L (136-145); Troponin I < 0.03 ng/mL (< 0.04); eGFR For African Americans > 60 (> 60); eGFR For Non-African Americans > 60 (> 60)
[2021-07-17] MEDS ORDERED: Ondansetron 4 MG/2 ML VIAL IVP PRN (17:16)
[2021-07-17] MEDS ORDERED: Naloxone 0.4 MG/ML INJ IVP PRN (17:16)
[2021-07-17 20:37] LABS: Bacteria,Urine Few per hpf (None-Few); Bilirubin,Urine Negative (Negative); Blood,Urine Negative (Negative); Clarity,Urine Clear (Clear); Color,Urine Colorless (Yellow); Glucose,Urine (UA) Normal (Normal); Ketones,Urine Negative (Negative); Leukocyte Esterase,Urine Large (Negative); Nitrite,Urine Negative (Negative); PH,Urine 6.5 pH Units (5.0-8.0); Protein,Urine Negative (Neg-Trace); Specific Gravity,Urine > 1.030 (1.010-1.025); Squamous Epithelial Cell,Urine Few per hpf (None-Few); Urobilinogen,Urine Normal (Normal); WBC,Urine 50-100 per hpf (0-3)
[2021-07-17] MEDS ORDERED: Melatonin 3 MG TABLET PO PRN (20:41)
[2021-07-17] MEDS: *HR* Heparin 5,000 UNIT/ML VIAL SQ SCH (20:45)
[2021-07-18 02:57] LABS: Basophils # 0.1 K/mcL (0.0-0.2); Eosinophils # 0.3 K/mcL (0.0-0.6); Eosinophils % 3.4 %; Hematocrit 36.1 % (35.3-44.9); Immature Granulocytes % 0.3 % (0-4); Lymphocytes # 2.6 K/mcL (0.6-4.6); Lymphocytes % 35.4 %; Mean Corpuscular HGB Conc 32.4 g/dL (31.6-35.5); Mean Corpuscular Volume 86.4 fL (83.0-100.0); Mean Platelet Volume 9.5 fL (9.4-12.4); Monocytes # 0.6 K/mcL (0.0-1.3); Neutrophils # 3.8 K/mcL (1.6-8.9); Platelet Count 228 K/mcL (140-400); Red Blood Count 4.18 M/mcL (3.82-4.97); Red Cell Distribution Width 13.2 % (11.5-14.5); Segmented Neutrophils % 51.9 %; White Blood Count 7.4 K/mcL (4.3-11.1)
[2021-07-18 02:58] LABS: Hemoglobin 11.7 g/dL (11.5-15.4)
[2021-07-18 03:05] LABS: INR 1.1; Prothrombin Time 12.1 Seconds (9.4-12.1)
[2021-07-18 03:25] LABS: Alanine Aminotransferase 13 Units/L (7-52); Albumin 3.7 g/dL (3.5-5.7); Albumin/Globulin Ratio 1.7 (1.1-2.2); Alkaline Phosphatase 43 Units/L (34-104); Aspartate Amino Transferase 14 Units/L (13-39); BUN/Creatinine Ratio 28 (6-26); Bilirubin,Total 0.5 mg/dL (0.3-1.0); Blood Urea Nitrogen 20 mg/dL (8-23); Calcium 9.2 mg/dL (8.6-10.3); Carbon Dioxide 30 mEq/L (23-29); Chloride 104 mEq/L (98-107); Chol/HDL Ratio 4.9 (0-4.9); Cholesterol 233 mg/dL (< 200); Globulin 2.2 g/dL (2.4-3.5); Glucose 104 mg/dL (70-105); HDL Cholesterol 48 mg/dL (40-59); LDL Cholesterol,Calculated 166 mg/dL (< 100); Osmolality,Calculated 293 (280-300); Potassium 4.1 mEq/L (3.5-5.1); Sodium 140 mEq/L (136-145); Total Protein 5.9 g/dL (6.4-8.9); Triglycerides 96 mg/dL (< 150); eGFR For African Americans > 60 (> 60); eGFR For Non-African Americans > 60 (> 60)
[2021-07-18 03:42] LABS: Troponin I < 0.03 ng/mL (< 0.04)
[2021-07-18 04:41] LABS: Estimated Average Glucose 120 mg/dl; Hemoglobin A1C 5.8 %
[2021-07-18] MEDS: *HR* Heparin 5,000 UNIT/ML VIAL SQ SCH ×2 (05:03→12:12)
[2021-07-18] MEDS ORDERED: Aspirin 81 MG TAB.CHEW PO SCH (09:00)
[2021-07-18] MEDS ORDERED: BuPROPion XL (24 HR) 150 MG TABLET PO SCH (09:00)
[2021-07-18] MEDS ORDERED: Famotidine 20 MG TABLET PO SCH (09:00)
[2021-07-18] MEDS ORDERED: Cyanocobalamin (B-12) 1,000 MCG TABLET PO SCH (09:00)
[2021-07-18 11:30] VITALS: BP 142/91; PULSE 67; TEMP 97.7; O2SAT 99
== END 2021-07-18 13:52 | disposition home or self-care (01) ==
LOC: 3BNU 15:19 → EMEROOARM 15:19 → SUATTDRO 16:52 → 3BNU 17:42
PROVIDERS: ADMIT General Practice; ATTEND Internal Medicine